=== PATIENT | male | born 1950 | race Two or more races ===

== ENCOUNTER 2018-07-23 07:33 | Observation (INO) | payer MEDICARE, BC ==
--- NOTE | 2018-07-16 22:35 | HP ---
CC: Atilio Hoyt MD * ADMITTING HISTORY AND PHYSICAL: DATE OF ADMISSION: 07/23/18 ADMITTING DIAGNOSES: 1. Benign prostatic hypertrophy. 2. Partial urinary retention. PLANNED PROCEDURE: Transurethral resection of prostate. SURGEON: Carlos Pemberton MD HISTORY OF PRESENT ILLNESS: Bryson Swanson is a 68-year-old gentleman with longstanding history of symptoms related to prostate enlargement. He has been on maximal medical therapy in the form of Flomax 0.4 mg twice a day as well as Proscar 5 mg a day. In spite of that, he has significantly increased postvoid residual of almost 500 cc and bothersome voiding symptoms and is now being brought in for transurethral resection of prostate. He had a transrectal ultrasound and biopsies done in 2011, which had revealed benign prostatic tissue. His PSA had risen to 20 in October 2017 and then declined to 8.2 and I have not repeated the PSA because of his chronically increased postvoid residual and recent evaluation including urodynamics, all of which can prominently increase his PSA. I recommended that we wait and recheck a PSA 3 months after transurethral resection of prostate and also offered to postpone the surgery for 3 to 4 months to recheck a PSA, but because of the bothersome voiding symptoms, he would like to have the surgery done and will have the PSA be checked afterwards. PAST MEDICAL HISTORY: Otherwise unremarkable. Specifically, there is no history of diabetes mellitus or any other major systemic illness. PAST SURGICAL HISTORY: Significant for appendectomy. MEDICATIONS ON ADMISSION: 1. Flomax 0.4 mg twice a day. 2. Proscar 5 mg a day. ALLERGIES: No known drug allergies. SOCIAL HISTORY: Smoking history: He is a former smoker, who quit about 5 to 7 years ago. There is a [id number] smoking history. PHYSICAL EXAMINATION GENERAL: Reveals a pleasant healthy appearing, middle-aged gentleman. VITAL SIGNS: Blood pressure is 110/70, pulse 82 per minute and regular, oxygen saturation 98% on room air. LUNGS: Clear bilaterally. CARDIOVASCULAR: Regular rate and rhythm. S1, S2. ABDOMEN: Soft without masses. IMPRESSION: A 68-year-old gentleman with longstanding history of voiding dysfunction secondary to prostate enlargement. Planned procedure is transurethral resection of prostate. I have discussed the procedure in detail including possible risks of bleeding, infection, persistent voiding, erectile dysfunction, and permanent retrograde ejaculation. PLAN: Transurethral resection of prostate. [id number]/[facility] #: [id number] MTDD
[~2018-07-23 07:33] MED LIST: Buffered Lidocaine 0.9% SYRIN* 5 ML/SYR SYRINGE INTRADERM ONE; Famotidine IV* 10 MG/ML 2 ML (20 mg) IV ONE; Gentamicin ADULT (*) 160 MG in NS 0.9% 100 ML* 100 ML IVPB ONE
[2018-07-23] MEDS ORDERED: cefTRIAXone(*) 2 GM ADDV.VIAL IVPB ONE (07:38)
[2018-07-23] MEDS ORDERED: Famotidine IV* 10 MG/ML 2 ML (20 mg) ONE (07:38)
[2018-07-23] MEDS ORDERED: fentaNYL* 50 MCG/ML 2 ML VIAL (100 MCG VIAL) ONE (07:53)
[2018-07-23] MEDS ORDERED: Midazolam* 1 MG/ML 5 ML VIAL (5 MG) ONE (07:53)
[2018-07-23] MEDS ORDERED: KETAMINE HCL* 50 MG/ML 10 ML VIAL ONE (09:21)
[2018-07-23] MEDS ORDERED: Propofol* 10 MG/ML 20 ML BTL IV PUSH ONE (09:29)
[2018-07-23] MEDS ORDERED: Lidocaine 2% PF * 5 ML VIAL ONE (09:29)
[2018-07-23] MEDS ORDERED: Dexamethasone IV* 4 MG/ML 1 ML (4 MG) ONE (09:29)
[2018-07-23] MEDS ORDERED: Bupivacaine-MPF SPINAL* 7.5 MG/ML - 2ML AMP ONE (09:29)
[2018-07-23] MEDS ORDERED: Ketorolac INJ* 30 MG/ML 1 ML VIAL ONE (09:29)
[2018-07-23] MEDS ORDERED: Ondansetron INJ* 2 MG/ML VIAL ONE (09:29)
[2018-07-23] MEDS ORDERED: Furosemide IV* 10 MG/ML 2 ML VIAL (20 MG) ONE ×2 (09:49→18:18)
[2018-07-23] MEDS ORDERED: hydrALAZINE IV* 20 MG/ML VIAL ONE (10:42)
[2018-07-23] MEDS ORDERED: Acetaminophen TAB* 325 MG PO PRN (13:03)
[2018-07-23] MEDS ORDERED: oxyCODONE/Acetamin 5/325 MG* TAB PO PRN (13:03)
[2018-07-23] MEDS ORDERED: Docusate CAP* 100 MG PO PRN (13:04)
[2018-07-23] MEDS ORDERED: Pneumococcal *Vac Polyvalent 0.5 ML VIAL IM ONE (14:00)
[2018-07-23] MEDS ORDERED: Morphine VIAL* 4 MG/ML VIAL (1 ml vial) IV ONE (16:49)
[2018-07-23] MEDS ORDERED: Furosemide IV* 10 MG/ML 2 ML VIAL (20 MG) IV ONE (18:09)
[2018-07-23] MEDS: NS 0.9% 1000 ML* 1,000 ML IV ONE ×2 (19:09→20:38)
[2018-07-23 19:32] LABS: ABS Basophils 0.1 10^3/ul (0-0.2); ABS Eosinophils 0 10^3/ul (0-0.6); ABS Lymphocytes 0.6 10^3/ul (1.0-4.8); ABS Monocytes 0.5 10^3/ul (0-0.8); ABS Neutrophils 10.9 10^3/ul (1.5-7.7); ABS Nucleated RBC 0 10^3/ul; Eosinophil % 0 % (0-6); Hematocrit 40 % (42-52); Hemoglobin 13.4 g/dl (14.0-18.0); Lymphocyte % 4.7 % (25-47); Mean Corpuscular HGB Conc 34 g/dl (31-36); Mean Corpuscular Hemoglobin 31 pg (27-31); Mean Corpuscular Volume 92 fL (80-94); Mean Platelet Volume 10.3 um3 (7.4-10.4); Nucleated Red Blood Cells % 0.1; Platelet Count 188 10^3/ul (150-450); Red Blood Count 4.34 10^6/ul (4.00-5.40); Red Cell Distribution Width 13 % (10.5-15)
[2018-07-23 19:46] LABS: EGFR Non-African American 77.2 (>60)
[2018-07-23] MEDS ORDERED: Magnesium Sulfate 2 GM IV* 2 GM/50 ML BAG IVPB ONE (19:49)
[2018-07-23] MEDS ORDERED: NS 0.9% 1000 ML* 1,000 ML IV ONE (20:33)
[2018-07-23] MEDS ORDERED: LORazepam INJ* 2 MG/ML 1 ML VIAL IV PUSH ONE (21:26)
--- NOTE | 2018-07-23 21:54 | CONS ---
CC: Dr. Hyot; Dr. Pemberton * CONSULTATION REPORT: DATE OF CONSULT: 07/23/18 PRIMARY CARE PROVIDER: Dr. Hoyt. ATTENDING PHYSICIAN WHILE IN THE HOSPITAL: Chyna Jose MD (report being dictated by Karena Fraga NP). REASON FOR MEDICAL CONSULTATION: Tachycardia. HISTORY OF PRESENT ILLNESS: I refer you to Dr. Pemberton's H and P for further details. In short, Mr. Swanson is a 68-year-old male patient who has been having issues with BPH for some time. He sought care with Dr. Pemberton. Dr. Pemberton recommended a TURP, which he underwent today. It was noted intraoperatively that the patient was having issues with hypertension. He was given Lasix intraoperatively to help with the blood pressure according to Dr. Pemberton. He was then noted postoperatively at around 1800 to be tachycardic in the 120s. Because of this, we were asked to evaluate in consult. The patient says he has no medical history. He denies having any history of heart attack, strokes, cancers. He denies having any history of diabetes, hypertension, CAD. There was concern though because of the tachycardia. He is evaluated in the surgical stay unit. He denies any chest pain or shortness of breath. He says he is feeling well. He denies having any abdominal pain. He denies having any nausea or vomiting. He denies having any lightheadedness or dizziness and says he does not feel like he is going to faint or pass out. Because of tachycardia , we were asked to evaluate in consult. PAST MEDICAL HISTORY: Significant for BPH. PAST SURGICAL HISTORY: He has had: 1. Appendectomy. 2. TURP. HOME MEDICATIONS: Include: 1. Proscar 1 tablet daily. 2. Flomax 1 tablet daily. 3. Advil 3 tablets p.o. daily as needed. ALLERGIES TO MEDICATIONS: Include no known drug allergies. FAMILY HISTORY: Mother's history is unknown. Father of old age. SOCIAL HISTORY: He is a former smoker. He does drink 1 to 2 glasses of wine with dinner. Surrogate decision maker is his . REVIEW OF SYSTEMS: There is no documented fever. He denies having any significant weight change. There was no double vision. He denies having any ear discharge. He denies having any rhinorrhea. There was no sore throat. No thyroid enlargement. Denied having any chest pain. There is no orthopnea, no nocturnal dyspnea. There is no abdominal pain, no nausea, no vomiting. No dysuria, no frequency. No seizure, no loss of consciousness. No pruritus and no skin ulcerations. Review of 14 systems was completed, all others negative. PHYSICAL EXAM: Vital Signs: When he came in at 7:50 in the morning, his blood pressure was 151/97, blood pressure now is 155/86; pulse 120; respirations 18; O2 sat 99%; temperature 97.8. General: At this time, Mr. Swanson is a 68-year -old male patient. He is sitting in the hospital bed. He does not appear to be in any acute distress. He appears to be well nourished and well developed. HEENT: Head: Atraumatic and normocephalic. Eyes: EOMs intact. Sclerae are anicteric and not pale. Throat: Oral mucosa appears to be moist. No oropharyngeal erythema. Neck was supple. Heart: Sounds S1, S2. He is tachycardic. No murmurs, rubs, or gallops. Lungs were clear to auscultation bilaterally. No wheezes, rales, or rhonchi. Abdomen was soft, flat, nontender. Bowel sounds were present. Extremities: Pulses were 2+ throughout. He is moving all 4 extremities with 5/5 strength. Neurologically, he is awake , alert, and oriented x3. No gross focal deficits. Skin is intact. DIAGNOSTIC STUDIES/LAB DATA: Labs are pending at this point, but he did have an EKG which shows sinus tachycardia, rate of 120. T-waves were flat in lead 2 , negative in lead 3, flat in aVF. No previous EKG for comparison was noted. Old medical records were reviewed. ASSESSMENT AND PLAN: Mr. Swanson is a 68-year-old male patient coming in to services today of Dr. Pemberton for a TURP. We were asked to evaluate in consult due to tachycardia postop. Our recommendations at this point are: 1. Tachycardia. At this point, it could be secondary to the fact that he did receive 15 mg of IV Lasix preop. He may be just behind in fluids; however, he did have a TURP. I do worry about possible bleeding, so I am checking a CBC, mag, BMP, TSH. He is not complaining of any chest pain or shortness of breath. I do not believe this is a pulmonary embolism. I am going to place him on telemetry and monitor him. He just had the TURP earlier today, so it is a little soon for this. He is not having any calf or leg pain. I think we will continue to monitor him, give him a liter of fluids, see if he responds and check his CBC and his electrolytes currently. 2. Benign prostatic hypertrophy. I will defer the management to Dr. Pemberton. 3. DVT prophylaxis per the primary team. 4. Fluids, electrolytes, and nutrition: I would recommend a regular diet. 5. Code status: Full code. TIME SPENT: Time spent on consult was 60 minutes, greater than half the time was spent [id number] with the patient obtaining my history and physical, other half time was spent going over the plan of care with the patient and implementing plan of care. I discussed the plan of care with my attending, Dr. Jose; she is in agreement. KARENA FRAGA NP [id number]/[facility] #: [id number] LAISHA
[2018-07-23] MEDS ORDERED: LORazepam TAB(*) 1 MG PO SCH (23:45)
[2018-07-23] MEDS ORDERED: Metoprolol Tartrate IV* 1 MG/ML 5 ML VIAL IV PRN (23:57)
--- NOTE | 2018-07-23 23:59 | PN ---
Progress Note - Progress Note Date of Service: 07/23/18 Note: Paged for persistent sinus tachycardia. Not scoring on WAM with the exception of his tachycardia. Will transfer to tele and ordered prn lopressor. Did not respond to IVFs or ativan. Unclear the etiology behind the tachycardia. Will order echo in AM.
[2018-07-24] MEDS ORDERED: Metoprolol Tartrate IV* 1 MG/ML 5 ML VIAL ONE (00:03)
--- NOTE | 2018-07-24 01:05 | OP ---
CC: Atilio Hoyt MD * DATE OF OPERATION: 07/23/18 - ROOM #431 DATE OF : 52 SURGEON: Carlos Pemberton MD ANESTHESIOLOGIST: Dr. Peña. ANESTHESIA: Spinal. PRE-OP DIAGNOSIS: Benign prostatic hypertrophy. POST-OP DIAGNOSIS: Benign prostatic hypertrophy. OPERATIVE PROCEDURE: 1. Transurethral resection of prostate. 2. Transurethral incision of bladder neck. COMPLICATIONS: None. ESTIMATED BLOOD LOSS: Approximately 100 cc. SPECIMENS: Prostate chips. CATHETER: 24-Omani Stafford. INDICATIONS: Bryson Swanson is a 68-year-old gentleman with longstanding history of symptoms related to prostate enlargement who has failed medical therapy and is now being brought in for transurethral resection of the prostate. DESCRIPTION OF PROCEDURE: After induction of spinal anesthesia, the patient was placed in dorsal lithotomy position. Sequential compression devices were in place and functioning. Initial evaluation revealed a moderately enlarged obstructing prostate, a trabeculated bladder with multiple small bladder diverticula noted. Transurethral resection of prostate was carried out from the bladder neck down to the veru. The floor of the prostate was first resected, followed by the lateral lobe tissue and then the anterior tissue. At no point was the resection carried distal to the veru in an effort to avoid any potential injury to the sphincter. The resected tissue was removed from the bladder using the Ellik evacuator. Next, using right angle knife electrode, transurethral incision of the bladder neck was carried out at the 5, 7 and 12 o'clock positions in an effort to minimize any chances of postoperative bladder neck contracture. At the end of the procedure, hemostasis appeared satisfactory. A 24-Omani Stafford was introduced without difficulty. The patient tolerated the procedure satisfactorily and was transferred back to the recovery area in stable condition. [id number]/[facility] #: [id number] [facility]
--- NOTE | 2018-07-24 07:24 | RAD ---
Indication: Tachycardia. Comparison: June 06, [address] Technique: Upright AP 2050 hours Report: Minimal LEFT basilar subsegmental atelectasis. Negative for pleural effusion or pneumothorax. Negative for cardiomegaly. Unremarkable central pulmonary vasculature. Moderately tortuous thoracic aorta. IMPRESSION: #. Minimal LEFT basilar subsegmental atelectasis. R1
[2018-07-24] MEDS ORDERED: Magnesium Sulfate IV* 3 GM in NS 0.9% 100 ML* 100 ML IVPB ONE (08:00)
[2018-07-24] MEDS: Thiamine TAB* 100 MG TAB PO SCH (08:31)
[2018-07-24] MEDS: Folic Acid TAB* 1 MG PO SCH (08:31)
[2018-07-24] MEDS: Multivitamins/Minerals TAB PO SCH (08:31)
--- NOTE | 2018-07-24 17:32 | ECHO ---
Patient: JONE SAHA [facility] Rec#: [id number] : 1950 Date: 07/24/2018 Age: 68y Height: 175 cm / 68.9 in Weight: 72.6 kg / 160.0 lbs Sex: M BSA: 1.88 Room#: 431 Admit Date#: 07/23/2018 Type: Inpatient Referring: Chyna Jose Reading: Gregory Christian DO Reception Interviewer: Loli Kelly RN RDCS CC: Atilio Hoyt MD Transthoracic Echocardiogram Indication: Abnormal EKG, tachycardia BP: 132/47 HR: 86 Rhythm: NSR Findings History: Former smoker, BPH Technical Comments: The study quality is fair. Left Ventricle: The left ventricular chamber size is normal. Mild to moderate concentric left ventricular hypertrophy is observed. Global left ventricular wall motion and contractility are within normal limits. There is normal left ventricular systolic function. The estimated ejection fraction is 60-65%. There is no consistent Doppler evidence of clinically significant diastolic dysfunction. Left Atrium: The left atrial chamber size is normal. Right Ventricle: The right ventricular chamber size and systolic function are within normal limits. Right Atrium: The right atrium is mildly dilated. Aortic Valve: The aortic valve appears bicuspid., probable with fusion of RCC/LCC The aortic valve leaflets are mildly thickened. There is moderate aortic regurgitation. There is borderline aortic stenosis present. Mitral Valve: The mitral valve leaflets are mildly thickened. There is mild mitral regurgitation. There is no evidence of mitral stenosis. Tricuspid Valve: The tricuspid valve leaflets are normal. There is trace to mild tricuspid regurgitation. Unable to estimate the right ventricular systolic pressure. There is no tricuspid stenosis. Pulmonic Valve: The pulmonic valve appears normal. There is mild pulmonic regurgitation. There is no pulmonic stenosis. Pericardium: There is no significant pericardial effusion. Aorta: There is mild dilatation of the aortic root. Pulmonary Artery: The main pulmonary artery appears normal. Venous: The inferior vena cava is dilated. There is a greater than 50% respiratory change in the inferior vena cava dimension. Conclusions The left ventricular chamber size is normal. Mild to moderate concentric left ventricular hypertrophy is observed. Global left ventricular wall motion and contractility are within normal limits. There is normal left ventricular systolic function. The estimated ejection fraction is 60-65%. The left atrial chamber size is normal. The right ventricular chamber size and systolic function are within normal limits. The aortic valve appears bicuspid There is moderate aortic regurgitation. There is borderline aortic stenosis present. There is mild dilatation of the aortic root at 3.8 cm The visualized portion of the ascending aorta is dilated at 4.5 cm. In the setting of a bicuspid aortic valve this is severe dilation. The more distal portions of the ascending aorta, aortic arch and descending aorta are not well visualized. None prior for comparison at time of interpretation Measurements Name Value Normal Range RVIDd (AP) 2D 3.2 cm (0.9 - 2.6) RVDdMajor (2D) 4.2 cm (2.2 - 4.4) RAd ISD 4CH 5.3 cm (3.4 - 4.9) RA (A4C)W 4.1 cm (2.9 - 4.6) IVSd (2D) 1.3 cm (0.6 - 1) LVPWd (2D) 1.3 cm (0.6 - 1) LVIDd (2D) 4.8 cm (3.6 - 5.4) LVIDs (2D) 3.4 cm - LV FS (2D) 29 % (25 - 45) Aortic Annulus 2.2 cm (1.4 - 2.6) Ao root diameter (2D) 3.8 cm (2.1 - 3.5) Ascending Ao 4.5 cm (2.1 - 3.4) Aortic arch 3.3 cm (1.8 - 3.4) LA dimension (AP) 2D 3.2 cm (2.3 - 3.8) LAd ISD 4CH 4.4 cm (2.9 - 5.3) LA ISD 4CH W 3.8 cm (2.5 - 4.5) Name Value Normal Range LA ESV BP (A/L) index 19.8 ml/m2 - Name Value Normal Range MV E-wave Vmax 0.63 m/sec - MV deceleration time 239 msec - MV A-wave Vmax 0.87 m/sec - LV septal e' Vmax 0.05 m/sec - LV lateral e' Vmax 0.05 m/sec - LV E:e' septal ratio 12.6 ratio - LV E:e' lateral ratio 12.6 ratio - Name Value Normal Range AV Vmax 2.2 m/sec - AV VTI 44.4 cm - AV peak gradient 19 mmHg - AV mean gradient 11 mmHg - LVOT diameter 2 cm - LVOT Vmax 1.4 m/sec - LVOT VTI 25.7 cm - LVOT peak gradient 8 mmHg - LVOT mean gradient 4 mmHg - DOI (VTI) 0.58 ratio - DOI (Vmax) 0.64 ratio - FLROI (continuity Vmax) 2 cm2 - FLORI (continuity VTI) 1.8 cm2 - TIMOTEO Vmax 0.38 m/sec - Name Value Normal Range IVC diameter 2.3 cm - Name Value Normal Range PV Vmax 0.91 m/sec -
[2018-07-24] MEDS ORDERED: Metoprolol Tartrate IV* 1 MG/ML 5 ML VIAL IV PRN (18:12)
--- NOTE | 2018-07-24 18:23 | PN ---
Subjective Date of Service: 07/24/18 Interval History: Patient has offered no complaints today. Patient is unaware when his heart rate is going up. Patient denies CP, SOB, N/V, abdominal pain, dizziness, F/C, or other pain. Discussed with patient his diagnosis of bicuspid aortic valve and aortic dilation and he elected to stay until the morning to discuss with a sand carrier and set up monitoring. Family History: Unchanged from Admission Social History: Unchanged from Admission Past Medical History: Unchanged from Admission Objective Active Medications: Acetaminophen (Tylenol Tab*) 650 mg PO Q6H PRN PRN Reason: TEMP>100.5 Docusate Sodium (Colace Cap*) 100 mg PO TID PRN PRN Reason: . Folic Acid (Folvite Tab*) 1 mg PO DAILY [facility] Last Admin: 07/24/18 08:31 Dose: 1 mg Metoprolol Tartrate (Lopressor Iv*) 5 mg IV Q6H PRN PRN Reason: BLOOD PRESSURE Metoprolol Tartrate (Lopressor Tab*) 25 mg PO BID [facility] Multivitamins/Minerals (Theragran/Minerals Tab*) 1 tab PO DAILY [facility] Last Admin: 07/24/18 08:31 Dose: 1 tab Oxycodone/Acetaminophen (Percocet 5/325 Tab*) 1 tab PO Q4H PRN PRN Reason: . Thiamine HCl (Vitamin B-1 Tab*) 100 mg PO DAILY [facility] Last Admin: 07/24/18 08:31 Dose: 100 mg Vital Signs - 8 hr 07/24/18 07/24/18 07/24/18 10:57 11:30 12:58 Temperature 98.0 F 97.9 F 98.6 F Pulse Rate 94 88 107 Respiratory 18 20 16 Rate Blood Pressure 147/74 144/80 139/69 (mmHg) O2 Sat by Pulse 97 98 96 Oximetry 07/24/18 07/24/18 14:00 15:14 Temperature 98.2 F Pulse Rate 85 Respiratory 20 Rate Blood Pressure 151/77 157/56 (mmHg) O2 Sat by Pulse 97 Oximetry Oxygen Devices in Use Now: None Appearance: Patient is a 68yo male who appears younger than stated age and is sitting in the bed in [facility]. Eyes: No Scleral Icterus, PERRLA Ears/Nose/Mouth/Throat: NL Teeth, Lips, Gums, Clear Oropharnyx, Mucous Membranes Moist Neck: NL Appearance and Movements; NL JVP, Trachea Midline Respiratory: Symmetrical Chest Expansion and Respiratory Effort, Clear to Auscultation Cardiovascular: NL Sounds; No Murmurs; No JVD, RRR, No Edema Abdominal: NL Sounds; No Tenderness; No Distention, No Hepatosplenomegaly Lymphatic: No Cervical Adenopathy Extremities: No Edema, No Clubbing, Cyanosis Skin: No Rash or Ulcers, No Nodules or Sclerosis Neurological: Alert and Oriented x 3, NL Sensation, NL Muscle Strength and Tone , - - CN II-XII intact Lines/Tubes/Other Access: Clean, Dry and Intact Stafford Result Diagrams: 07/23/18 19:22 07/23/18 19:22 Assess/Plan/Problems-Billing Assessment: Patient is a 68yo male with a PMH only for BPH, who is admitted for TURP and developed sinus tachycardia perioperatively which is improving. Patient had an incidentally found Bicuspid aortic valve on Echocardiogram and severe Ascending Aorta dilation. - Patient Problems (1) Aortic aneurysm Current Visit: Yes Status: Acute Code(s): I71.9 - AORTIC ANEURYSM OF UNSPECIFIED SITE, WITHOUT RUPTURE SNOMED Code(s): 18822188 Comment: - Incidentally found severe aortic aneurysm on Echo - With associated bicuspid aortic valve - Cardiology consult pending - Metoprolol started and PRN IV - Will need ongoing routine monitoring. (2) Bicuspid aortic valve Current Visit: Yes Status: Acute Code(s): Q23.1 - CONGENITAL INSUFFICIENCY OF AORTIC VALVE SNOMED Code(s): 21806407 Comment: - See above, with associated mild aortic regurgitation and trace aortic stenosis (3) S/P TURP Current Visit: Yes Status: Acute Code(s): Z90.79 - ACQUIRED ABSENCE OF OTHER GENITAL ORGAN(S) SNOMED Code(s): 297049571 Comment: - Stable, persistent hematuria - Hold Flomax and Finasteride - Continue Stafford (4) Sinus tachycardia Current Visit: Yes Status: Acute Code(s): R00.0 - TACHYCARDIA, UNSPECIFIED SNOMED Code(s): 45421471 Comment: - Improving, Unknown cause (5) DVT prophylaxis Current Visit: Yes Status: Acute Code(s): TYL0880 - SNOMED Code(s): 327833613 Comment: - SCDs and Ambulation (6) Full code status Current Visit: Yes Status: Acute Code(s): Z78.9 - OTHER SPECIFIED HEALTH STATUS SNOMED Code(s): 702313906 Status and Disposition: Inpatient for cardiology consult.
[2018-07-24] MEDS: Metoprolol Tartrate TAB* 25 MG PO SCH (20:23)
[2018-07-25 06:07] LABS: ABS Basophils 0 10^3/ul (0-0.2); ABS Eosinophils 0.2 10^3/ul (0-0.6); ABS Lymphocytes 1.7 10^3/ul (1.0-4.8); ABS Neutrophils 6.3 10^3/ul (1.5-7.7); ABS Nucleated RBC 0 10^3/ul; Eosinophil % 1.8 % (0-6); Hematocrit 38 % (42-52); Hemoglobin 12.9 g/dl (14.0-18.0); Lymphocyte % 18.2 % (25-47); Mean Corpuscular HGB Conc 34 g/dl (31-36); Mean Corpuscular Hemoglobin 31 pg (27-31); Mean Corpuscular Volume 92 fL (80-94); Mean Platelet Volume 10.2 um3 (7.4-10.4); Nucleated Red Blood Cells % 0.1; Platelet Count 172 10^3/ul (150-450); Red Blood Count 4.13 10^6/ul (4.00-5.40); Red Cell Distribution Width 13 % (10.5-15); White Blood Count 9.1 10^3/ul (3.5-10.8)
[2018-07-25 06:24] LABS: EGFR Non-African American 74.5 (>60)
[2018-07-25] MEDS: Thiamine TAB* 100 MG TAB PO SCH (09:04)
[2018-07-25] MEDS: Multivitamins/Minerals TAB PO SCH (09:04)
[2018-07-25] MEDS: Folic Acid TAB* 1 MG PO SCH (09:04)
[2018-07-25] MEDS: Metoprolol Tartrate TAB* 25 MG PO SCH (09:06)
[2018-07-25] MEDS ORDERED: Losartan TAB* 25 MG PO SCH (11:00)
--- NOTE | 2018-07-25 11:06 | CONSULT ---
Subjective Date of Service: 07/25/18 Interval History: Date of admission: 07/23/2018 Date of consult: 07/25/2018 PMD: Dr. Hoyt Service: Urologist CC: Urologic scheduled procedure Reason for consult: Incidentally discovered bicuspid aortic valve with thoracic aortic aneurysm. HPI Mr. Swanson is a 68-year-old man admitted for an elective TURP and has issues with sinus tachycardia and hypertension willian-operatively. An echocardiogram was performed showing an incidentally discovered bicuspid AoV with moderate AI and 4.5 cm TAA. He is asymptomatic from this and denies any chest pain, back pain or dyspnea. He has never been diagnosed with hypertension previously. He does not lift weights. His family history is as below. He had already done a lot of independent investigation into this condition by the time we met. His mother in law sees Dr. Noyola, has had multiple procedures with Dr. Pinto at [facility] and if surgery would be indicated, he would want it there. Social history: and is present. Worked in [employer] business all of life. 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 Prior tobaco use intermittenly ih past quit for good 2010, 1-2 glass of wine in evening, from [place] PAST MEDICAL HISTORY: BPH Cardiac as above PAST SURGICAL HISTORY: He has had: 1. Appendectomy. 2. TURP. HOME MEDICATIONS: Include: 1. Proscar 1 tablet daily. 2. Flomax 1 tablet daily. 3. Advil 3 tablets p.o. daily as needed. ALLERGIES TO MEDICATIONS: Include no known drug allergies. FAMILY HISTORY: Brother had brain aneurysm 1982 of this age 42 Mother age 78 or 79 in [place], had heart problems undefined, never had surgery Father age 95 age related issues 3 sisters in [place] and 1 in [place] no cardiac issues 3 children no cardiac issues All grandparents late 70's-early 80-'s uncertain about cardiac issues No known valve or aortic issues diagnosed in family. Medications Active Medications: Acetaminophen (Tylenol Tab*) 650 mg PO Q6H PRN PRN Reason: TEMP>100.5 Docusate Sodium (Colace Cap*) 100 mg PO TID PRN PRN Reason: . Folic Acid (Folvite Tab*) 1 mg PO DAILY KRIS Last Admin: 07/25/18 09:04 Dose: 1 mg Losartan Potassium (Cozaar Tab*) 25 mg PO DAILY [facility] Metoprolol Tartrate (Lopressor Tab*) 25 mg PO BID [facility] Last Admin: 07/25/18 09:06 Dose: 25 mg Multivitamins/Minerals (Theragran/Minerals Tab*) 1 tab PO DAILY [facility] Last Admin: 07/25/18 09:04 Dose: 1 tab Oxycodone/Acetaminophen (Percocet 5/325 Tab*) 1 tab PO Q4H PRN PRN Reason: . Thiamine HCl (Vitamin B-1 Tab*) 100 mg PO DAILY [facility] Last Admin: 07/25/18 09:04 Dose: 100 mg Home Medications: Finasteride 5 mg PO QAM 07/16/18 [History Confirmed 07/23/18] Acetaminophen TAB* [Tylenol TAB*] 650 mg PO Q6H PRN tab 07/24/18 [Rx] Review of Systems - Measurements Intake and Output: Intake and Output Last 24 Hours 07/23/18 07/24/18 07/25/18 07/26/18 06:59 06:59 06:59 06:59 Intake Total 7288 2540 Output Total 5065 3110 Balance 2223 -570 Weight 160 lb Intake: IV Fluids 6478 400 LR 3585 Magnesium 50 NS (0.9%) 1989 IVPB 100 Oral 810 2040 Output: Stafford 4725 3110 Irrigation 340 Other: # Bowel Movements 0 - Review of Systems Constitutional Symptoms: Negative: Weight Gain, Weight Loss Dermatology: Negative: Rash, Skin Lesions HEENT: Negative: Change in Hearing, Vertigo Eyes: Negative: Change in Vision, Double Vision Thyroid: Negative: Cold Intolerance, Heat Intolerance, Palpitations, Primary Hypothyroidism, Primary Hyperthyroidism, Weight Loss, Weight Gain Pulmonary: Negative: Sputum, Hemoptysis, Wheezing, Respiratory Distress, Shortness of Breath, COPD, Asthma, Exercise Intolerance, Home Oxygen Cardiology: Negative: Chest Pain, Shortness of Breath, Palpitations, Swelling of Ankles, Peripheral Vascular Dis, Edema, Faintness, Syncope, Claudication, Paroxysmal Nocturnal Dyspnea, Orthopnea Gastroenterology: Negative: Abdominal Pain, Nausea, Vomiting, Anorexia Genital - Urinary: Positive: Polyuria Negative: Hematuria Musculoskeletal: Negative: Joint Pain, Joint Stiffness, Arthritis, Osteoporosis, Low Back Pain Endocrinology: Negative: Obesity, Diabetes, Polydipsia, Polyuria Hematologic/Lymphatic: Negative: Use of Anticoagulant, Use of Antiplatelet Drugs Neurology: Negative: Headaches, Migraines, Change in Vision, Diplopia, Dizziness, Change in Balancing, Change in Coordination, Change in Memory, Hx of Stroke\TIA , Hx Seizures Psychiatry: Negative: Unusual Anxiety, Suicidal Ideation Allergic/Immunologic: Negative: Hx Anaphylaxis, Hx Angioedema, Hx HIV, Immunocompromise, Swollen Glands Lymph Nodes Review of Systems Statement: All other review of systems negative, unless stated above. Objective Vital Signs: Temp Pulse Resp BP Pulse Ox 99.8 F 60 20 142/52 97 07/25/18 07:20 07/25/18 07:20 07/25/18 07:20 07/25/18 07:20 07/25/18 07:20 Oxygen Devices in Use Now: None Appearance: nad, pleasant Ears/Nose/Mouth/Throat: Clear Oropharnyx, Mucous Membranes Moist Neck: NL Appearance and Movements; NL JVP, Trachea Midline Respiratory: Symmetrical Chest Expansion and Respiratory Effort, Clear to Auscultation Cardiovascular: RRR, No Edema, - - 1-2/6 diastolic murmur best heard at direct apex under left breast Extremities: No Edema, No Clubbing, Cyanosis Skin: No Rash or Ulcers Neurological: Alert and Oriented x 3 Laboratory Results: 07/25/18 05:22 07/25/18 05:22 TSH 0.75 mcIU/mL (0.34-5.60) 07/23/18 19:22 07/23/18 19:22 Troponin I 0.01 Diagnostic Imaging: Echo 07/23/2018: Normal LV size, mild-moderate LVH, LvEF 60-65%, normal LA size, normal RV size and function. Bicuspid AoV with RCC/LCC mildly thickened no significant calcium , moderate AI, borderline (2.2 m/s, mean gradient 11 mmHg, calculated FLORI 2 cm^2 by Vmax), 3.8 cm aortic root, 4.5 cm ascending aorta of visualized portions cxr 07/24/2018: moderately tortuous thoracic aorta EKG Data: EKG 07/24/2018 shows NSR, LVH with repolarization changes Assessment/Plan 68 year old man with incidentally discovered bicuspid AoV with moderate AI and borderline at most (appears to be a repairable valve) associated with 4.5 cm ascending aortic aneurysm by echo. No family history of aortic disease although first degree male relative that of cerebral aneurysm is very suspicious for similar inherited condition. - Continue metoprolol 25 mg po bid - Add losartan 25 mg po daily (ordered). Needs BMP in 1-2 weeks - Will gradually uptitrate medications as outpatient to goal BP ~ 120/80 - Will arrange for a CT of the aorta at [facility] as an outpatient to further define the dimensions and extent of his aortic aneurysm and arrange follow up afterwards - Patient can be discharged from a cardiac standpoint Thank you for allowing me to participate in the cardiovascular care of this patient. Please do not hesitate to contact me with questions or concerns.
[2018-07-25 15:36] VITALS: BP 132/65
--- NOTE | 2018-07-26 07:59 | DS ---
CC: Dr. Pemberton; Dr. Christian; Dr. Uribe * DISCHARGE SUMMARY: DATE OF ADMISSION: 07/23/18 DATE OF DISCHARGE: 07/25/18 MY ATTENDING FOR TODAY: Dr. Styles.* (DICTATED BY LUCILLE DESHPANDE NP) ATTENDING FOR THIS ADMISSION: Dr. Pemberton. HOSPITAL COURSE: This is a very pleasant 68-year-old male patient who was admitted by Urology for an elective TURP. The patient underwent his procedure and then had some sinus tachycardia and hypertension in the postoperative period. An echocardiogram was performed shortly thereafter, which showed an incidental finding of a bicuspid aortic valve and a 4.5 cm aortic aneurysm. The patient states he was asymptomatic. He did not have any chest pain. No tearing sensation in his back, no shortness of breath or dyspnea on exertion. The patient has essentially been asymptomatic. However, it was felt that the patient should be seen by cardiology prior to discharge given these new findings. He was seen by Dr. Gregory Christian on 07/25/18 who evaluated his echocardiogram. Recommendations from Dr. Christian were to continue metoprolol 2 times a day, add losartan, followup as an outpatient to titrate his medications and Dr. Christian's office will arrange for a CT of the aorta at [facility] as an outpatient to further investigate these issues with his aortic valve and the aneurysm. REVIEW OF SYSTEMS: On the day of discharge, the patient is not complaining of any fever, fatigue, or chills. No headache, no dizziness, no shortness of breath, no chest pain, no nausea, no vomiting, no abdominal pains. Urinary catheter with no issues. Musculoskeletal: No arthralgias or myalgias and no further constitutional complaints. PHYSICAL EXAM: The patient is alert, in no acute distress. Vital Signs: Blood pressure 132/65, heart rate 96, respiratory rate 20, O2 saturation 97% on room air with a temperature of 98.8. HEENT: The patient is atraumatic and normocephalic. PERRLA with nonicteric sclerae. Neck is supple and nontender. No JVD noted. No carotid bruits auscultated. Cardiovascular: S1 and S2 are present. No murmurs, gallops, or rubs noted. He has regular sinus rhythm on telemetry with no ectopy. Lungs are clear bilaterally to auscultation with no wheezing, rhonchi, or rales. Abdomen is soft, nontender, and nondistended. Positive bowel sounds in all 4 quadrants. : He has a Stafford catheter in place draining tea-colored urine. No clots noted in his bag. Musculoskeletal: There is no clubbing, no cyanosis, and no edema. He has +2 distal pulses palpable. Steady gait. Full range of motion. Gross motor and sensation are intact. Neurologic: Grossly intact with no focality. Psychiatric: He is cooperative and appropriate. LABORATORY DATA: WBC is 9.1, RBC is 4.13, hemoglobin 12.9, hematocrit 38, platelets 172. Sodium 143, potassium 3.8, chloride 108, CO2 of 28, BUN 15, creatinine 1.00, GFR 74.5, glucose 91, calcium 8.8, magnesium 2.2, TSH is 0.75, and troponin is negative at 0.01. DISCHARGE DIAGNOSES: 1. Benign prostatic hypertrophy, status post transurethral resection of the prostate. 2. Aortic aneurysm. 3. Bicuspid aortic valve. DISCHARGE MEDICATIONS: Include: 1. Proscar 1 tablet daily. 2. Flomax 1 tablet daily. 3. He was advised to stay away from [facility] given recent surgery. New Medications: 1. Metoprolol tartrate 25 mg b.i.d. 2. Losartan 25 mg daily. DISPOSITION: The patient will be discharged to home. FOLLOWUP: The patient was instructed to follow up with his primary care provider, Dr. Atilio Hoyt, also Dr. Thapa of cardiology service who will arrange additional testing at the [facility] and also Dr. Carlos Pemberton of Urology should follow up with him on Saturday to discuss when Stafford will be removed. The patient was discharged in stable condition. All questions were answered. The patient stated his understanding of his discharge, medications and followup. LUCILLE DESHPANDE NP [id number]/[facility] #: [id number] [facility]
== END 2018-07-25 17:00 | disposition home or self-care (01) ==
LOC: OR 07:33 → SSU 12:02 → MEDTELE 07-24 00:41
PROVIDERS: ADMIT Urology; ATTEND Hospitalist
PROC: 0VT08ZZ Resection of Prostate, Via Natural or Artificial Opening Endoscopic (ICD-10-PCS; principal; 2018-07-23 09:00)
DX: N40.1 Benign prostatic hyperplasia with lower urinary tract symptoms (principal); R33.8 Other retention of urine; I71.4 Abdominal aortic aneurysm, without rupture; Q23.1 Congenital insufficiency of aortic valve; R06.02 Shortness of breath; Z79.899 Other long term (current) drug therapy; I10 Essential (primary) hypertension; R00.0 Tachycardia, unspecified; Z23 Encounter for immunization; Z87.891 Personal history of nicotine dependence; I35.1 Nonrheumatic aortic (valve) insufficiency
CPT/HCPCS: 36415; 71045; 80048; 83735; 84443; 84484; 85025; 88305; 90471; 90472; 90686; 90732; 93005; 93306; 96365; 96366; 96375; A9270-GY; G0008; G0009; G0378; J0360; J0696; J1100; J1580; J1885; J1940; J2060; J2250; J2270; J2405; J2704; J3010; J3475; J3490

== ENCOUNTER 2019-02-21 10:35 | Emergency (ER) | payer MEDICARE, BC ==
[2019-02-21 11:05] VITALS: BP 153/68
--- NOTE | 2019-02-21 11:27 | UC ---
Headache HPI - HPI Summary HPI Summary: gradual onset dull headache behind bilateral eyes, occassionally radiates to bilateral ears, job L, also feels fatigued (working extra lately as well). "feels like sinus infection". denies sudden thunderclap headache, weakness or neuro deficits - History Of Current Complaint Chief Complaint: UCHeadacedric Stated Complaint: HEADACHE Time Seen by Provider: 02/21/19 11:05 Hx Obtained From: Patient Onset/Duration: Gradual Onset Onset Of Symptoms: Gradual Initially Headache Was: Mild Currently Pain Is: Moderate Pain Intensity: 8 Timing: Constant Character: Dull, Pressure Location of Headache: Occipital Aggravating Factor(s): Position Change Allevating Factor(s): Nothing Associated Signs And Symptoms: Positive: Sinus Pressure. Negative: Dizziness, Seizure, Nausea, Vomiting, Fever, Neck Pain, Neck Stiffness, Visual Changes - Allergies/Home Medications Allergies/Adverse Reactions: Allergies Allergy/AdvReac Type Severity Reaction Status Date / Time No Known Allergies Allergy Verified 02/21/19 11:05 Home Medications: Home Medications Aspirin 81 mg CHEW TAB* 81 mg PO DAILY 02/21/19 [History Confirmed 02/21/19] Atorvastatin* [Lipitor 40 MG*] 40 mg PO 1700 02/21/19 [History Confirmed ] Metoprolol Tartrate TAB* [Lopressor TAB*] 50 mg PO BID 02/21/19 [History Confirmed 02/21/19] Oxycodone HCl 5 mg PO Q6H PRN 02/21/19 [History Confirmed 02/21/19] Warfarin TAB(*) [Coumadin TAB(*)] 2.5 mg PO 1700 02/21/19 [History Confirmed 02/06] PMH/Surg Hx/FS Hx/Imm Hx Previously Healthy: Yes Endocrine History: Dyslipidemia Cardiovascular History: Cardiac Disease, Hypertension - Surgical History Surgical History: Yes Surgery Procedure, Year, and Place: appendectomy, age 11, aortic valve replacement, aortic aneurysm - Family History Known Family History: Positive: Hypertension, Other - cerebral aneurysm - brother - Social History Occupation: Employed Full-time Lives: With Family Alcohol Use: Daily Alcohol Amount: 1 glass wine Substance Use Type: None Smoking Status (MU): Former Smoker Amount Used/How Often: pack a day for 20 yrs When Did the Patient Quit Smoking/Using Tobacco: 2007 - Immunization History Most Recent Influenza Vaccination: 07/23/18 Most Recent Pneumonia Vaccination: 07/23/18 Review of Systems All Other Systems Reviewed And Are Negative: Yes Constitutional: Positive: Fatigue Skin: Positive: Negative Eyes: Positive: Negative ENT: Positive: Nasal Discharge - clear, Sinus Congestion, Sinus Pain/ Tenderness. Negative: Sore Throat Respiratory: Positive: Negative. Negative: Cough Cardiovascular: Positive: Negative. Negative: Chest Pain Neurological: Positive: Headache. Negative: Weakness, Paresthesia, Numbness Psychological: Positive: Negative Is Patient Immunocompromised?: No Physical Exam Triage Information Reviewed: Yes Appearance: Well-Appearing, No Pain Distress, Well-Nourished Vital Signs: Initial Vital Signs Temp 97.1 F 02/21/19 10:59 Pulse 66 02/21/19 10:59 Resp 16 02/21/19 10:59 BP 153/68 02/21/19 10:59 Pulse Ox 98 02/21/19 10:59 Vital Signs Reviewed: Yes Eyes: Positive: Conjunctiva Clear, Other: - PERRLA ENT: Positive: Pharynx normal, Nasal congestion, TMs normal, Sinus tenderness Neck exam: Normal Neck: Positive: Supple, Nontender, No Lymphadenopathy Respiratory Exam: Normal Cardiovascular Exam: Normal Cardiovascular: Positive: RRR Neurological Exam: Normal Neurological: Positive: Alert Psychological Exam: Normal Skin Exam: Normal Headache Course/Dx - Differential Dx/Diagnosis Differential Diagnosis/HQI/PQRI: Meningitis, Migraine, Sinus Headache, Subarachnoid Hemorrhage Provider Diagnosis: Sinusitis Discharge - Sign-Out/Discharge Documenting (check all that apply): Patient Departure All imaging exams completed and their final reports reviewed: No Studies - Discharge Plan Condition: Stable Disposition: HOME Prescriptions: Amoxicillin/Clavulanate TAB* [Augmentin TAB 875*] 875 mg PO BID #20 tab Patient Education Materials: Sinusitis (ED) Referrals: Atilio Hoyt MD [Primary Care Provider] - 2 Days (recheck blood pressure and headache) Additional Instructions: start augmentin antibiotic drink plenty of fluids Report to ER if symptoms worsen or symptoms occur at ANY time Tylenol as directed for pain - Billing Disposition and Condition Condition: STABLE Disposition: Home
== END 2019-02-21 11:33 | disposition home or self-care (01) ==
LOC: UCEAST 10:35
DX: J32.9 Chronic sinusitis, unspecified (principal); R53.83 Other fatigue; E78.5 Hyperlipidemia, unspecified; I11.9 Hypertensive heart disease without heart failure; Z95.2 Presence of prosthetic heart valve; Z79.01 Long term (current) use of anticoagulants; Z79.82 Long term (current) use of aspirin; Z87.891 Personal history of nicotine dependence
CPT/HCPCS: 99212; G0463

== ENCOUNTER 2019-02-26 09:18 | Inpatient (IN) | payer MEDICARE, BC ==
--- NOTE | 2019-02-26 09:40 | ED ---
Headache - HPI Summary HPI Summary: A 68 y/o M presents to ED c/o gradual onset diffuse MOSQUERA onset a week ago. He states not getting MOSQUERA often. He was seen at [facility] five days ago and given ABX for a sinus infection which he took, and he had some relief, but the MOSQUERA returned fully last night. Associated sx: mild photophobia, n/v. Aggravating factors: bending over. Pt had aortic valve replacement on Oct 30, 2018 in [place]. He is on blood thinners. 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 - Onset/Duration: Gradual Onset, Started weeks ago, Still Present Timing: Constant Location of Headache: Diffuse Aggravating Factor: Position Change - bending over Associated Signs And Symptoms: Nausea, Vomiting, Visual Changes - mild photophobia - Allergies/Home Medications Allergies/Adverse Reactions: Allergies Allergy/AdvReac Type Severity Reaction Status Date / Time No Known Allergies Allergy Verified 02/26/19 09:26 PMH/Surg Hx/FS Hx/Imm Hx Previously Healthy: No Endocrine/Hematology History: Denies: Hx Diabetes Cardiovascular History: Reports: Hx Hypertension Denies: Hx Pacemaker/ICD, Hx Peripheral Vascular Disease, Other Cardiovascular Problems/Disorders Respiratory History: Denies: Other Respiratory Problems/Disorders GI History: Denies: Other GI Disorders History: Reports: Other Problems/Disorders - bph Denies: Hx Renal Disease Musculoskeletal History: Denies: Hx Arthritis, Hx Osteoporosis, Other Musculoskeletal History Sensory History: Denies: Hx Contacts or Glasses, Hx Hearing Aid Opthamlomology History: Denies: Hx Contacts or Glasses Neurological History: Denies: Hx Headaches, Hx Seizures, Hx Transient Ischemic Attacks (TIA), Other Neuro Impairments/Disorders Psychiatric History: Denies: Hx Panic Disorder - Surgical History Surgery Procedure, Year, and Place: appendectomy, age 11, aortic valve replacement, aortic aneurysm Hx Anesthesia Reactions: No Infectious Disease History: No Infectious Disease History: Denies: Traveled Outside the [place] in Last 30 Days - Family History Known Family History: Positive: Hypertension, Other - cerebral aneurysm - brother - Social History Occupation: Employed Full-time Lives: With Family Alcohol Use: Daily Alcohol Amount: 1 glass wine Hx Substance Use: No Substance Use Type: Reports: None Hx Tobacco Use: Yes Smoking Status (MU): Former Smoker Amount Used/How Often: pack a day for 20 yrs Review of Systems Positive: Photophobia - mild Positive: Vomiting, Nausea Positive: Headache - diffuse All Other Systems Reviewed And Are Negative: Yes Physical Exam - Summary Physical Exam Summary: Appearance: The patient is well-nourished in no acute distress and in no acute pain. Skin: The skin is warm and dry and skin color reflects adequate perfusion. HEENT: The head is normocephalic and atraumatic. The pupils are equal and reactive. The conjunctivae are clear and without drainage. Nares are patent and without drainage. Mouth reveals moist mucous membranes and the throat is without erythema and exudate. The external ears are intact. The ear canals are patent and without drainage. The tympanic membranes are intact. Neck: the neck is supple with full range of motion and non-tender. There are no carotid bruits. There is no neck vein distension. Respiratory: Chest is non-tender. Lungs are clear to auscultation and breath sounds are symmetrical and equal. Cardiovascular: Heart is regular rate and rhythm. There is no murmur or rub auscultated. There is no peripheral edema and pulses are symmetrical and equal. Abdomen: The abdomen is soft and non-tender. There are normal bowel sounds heard in all four quadrants and there is no organomegaly palpated. Musculoskeletal: There is no back tenderness noted. Extremities are non-tender with full range of motion. There is good capillary refill. There is no peripheral edema or calf tenderness elicited. Neurological: Patient is alert and oriented to person, place and time. The patient has symmetrical motor strength in all four extremities. Cranial nerves are grossly intact. Deep tendon reflexes are symmetrical and equal in all four extremities. Psychiatric: The patient has an appropriate affect and does not exhibit any anxiety or depression. Triage Information Reviewed: Yes Vital Signs On Initial Exam: Initial Vitals Temp Pulse Resp BP Pulse Ox 97.4 F 85 18 191/90 95 02/26/19 09:20 02/26/19 09:20 02/26/19 09:20 02/26/19 09:20 02/26/19 09:20 Vital Signs Reviewed: Yes - [place] Coma Scale Best Eye Response: 4 - Spontaneous Best Motor Response: 6 - Obeys Commands Best Verbal Response: 5 - Oriented Coma Scale Total: 15 Diagnostics - Vital Signs Vital Signs Temp Pulse Resp BP Pulse Ox 02/26/19 09:20 97.4 F 85 18 191/90 95 - Laboratory Result Diagrams: 02/26/19 10:03 02/26/19 10:03 Lab Statement: Any lab studies that have been ordered have been reviewed, and results considered in the medical decision making process. - CT BRAIN CT CT Interpretation Completed By: Radiologist Summary of CT Findings: IMPRESSION: BIFRONTAL ACUTE ON SUBACUTE SUBDURAL HEMATOMAS WITH MINIMAL FALCINE EXTENSION. THERE IS NO. SHIFT. ED provider has reviewed this report. Headache Course/Dx - Course Course Of Treatment: Mr. Swanson started gradually with a frontal headache about a week ago. He was started on Augmentin for presumed sinusitis and did get better for a couple of days. Yesterday the headache returned and he comes in stating that it's relatively severe. He has no other symptoms with. It is exacerbated by bending forward. He is on Coumadin for a mechanical valve placed for repair of a congenital bicuspid aortic valve. His neurological exam was intact with no focality. He was nontoxic in appearance with stable vitals. His INR was found to be 3.[address] of the brain shows acute on chronic small subdurals bilaterally in the frontal lobes. I spoke with Dr. Brody and Dr. Boyd and their recommendation was to reverse the anticoagulation therefore the patient was given IM vitamin K and IV fresh frozen plasma. Dr. Pruitt was contacted for the hospitalist service for admission. - Diagnoses Provider Diagnoses: Acute on chronic intracranial subdural hematoma - Physician Notifications Discussed Care Of Patient With: Corky Rodriguez - radiology Time Discussed With Above Provider: 10:42 Instructed by Provider To: Other - Called re: Brain CT, there is a bifrontal acute on subacute subdural hematomas. - Critical Care Time Critical Care Time: 30-74 min Discharge - Sign-Out/Discharge Documenting (check all that apply): Patient Departure - ADMIT Patient Received Moderate/Deep Sedation with Procedure: No - Discharge Plan Condition: Stable Disposition: ADMITTED TO [facility] Referrals: Verónica Barros MD [Primary Care Provider] - - Billing Disposition and Condition Condition: STABLE Disposition: Admitted to [facility] - Attestation Statements Document Initiated by Scribe: Yes Documenting Scribe: SooYtoddg Rose Provider For Whom Scribe is Documenting (Include Credential): Dr. Ryan Calabrese MD Scribe Attestation: I, Christopher Rose, scribed for Dr. Ryan Calabrese MD on 02/26/19 at 1210. Scribe Documentation Reviewed: Yes Provider Attestation: The documentation as recorded by the elida, Christopher Rose accurately reflects the service I personally performed and the decisions made by me, Dr. Ryan Calabrese MD Status of Scribe Document: Viewed Consult Consult: 1115: Consult with Dr. Bhatti, neuro surgery Recommends reversing Coumadin and giving Keppra for sz. 1140: Consult with Dr. Boyd, cardio Agrees with reversing the anticoagulation therapy. 1149: Consult with Dr. San, hospitalist Will admit patient.
[2019-02-26] MEDS ORDERED: Ketorolac INJ* 30 MG/ML 1 ML VIAL IV PUSH ONE (09:52)
[2019-02-26] MEDS ORDERED: diPHENhydraMINE PO* 50 MG PO ONE (09:52)
[2019-02-26] MEDS ORDERED: Metoclopramide IV* 5 MG/ML 2 ML VIAL IV ONE (09:52)
[2019-02-26 10:16] LABS: ABS Lymphocytes 0.6 10^3/ul (1.0-4.8); ABS Monocytes 0.4 10^3/ul (0-0.8); ABS Neutrophils 6.4 10^3/ul (1.5-7.7); Eosinophil % 0.2 %; Hematocrit 35 % (42-52); Hemoglobin 11.2 g/dL (14.0-18.0); Lymphocyte % 8.6 %; Mean Corpuscular HGB Conc 32 g/dL (31-36); Mean Corpuscular Hemoglobin 27 pg (27-31); Mean Corpuscular Volume 85 fL (80-94); Mean Platelet Volume 9.7 fL (7.4-10.4); Platelet Count 193 10^3/uL (150-450); Red Blood Count 4.08 10^6 /uL (4.18-5.48); Red Cell Distribution Width 17 % (10.5-15); White Blood Count 7.5 10^3/uL (3.5-10.8)
[2019-02-26 10:17] LABS: INR 3.14 (0.82-1.09)
[2019-02-26 10:27] LABS: Albumin 4.1 g/dL (3.2-5.2); Albumin/Globulin Ratio 1.4 (1-3); BUN/Creatinine Ratio 24.5 (8-20); Calcium 9.4 mg/dL (8.6-10.3); EGFR African American 96.9 (>60); Globulin 2.9 g/dL (2-4); Potassium 4.2 mmol/L (3.5-5.0); Total Bilirubin 0.5 mg/dL (0.2-1.0)
[2019-02-26] MEDS ORDERED: levETIRAcetam 1000MG IVPREMIX* 1,000 MG/100 ML BAG IVPB ONE (11:23)
[2019-02-26] MEDS ORDERED: Phytonadione SUBCUT/IM Adult* 10 MG/ML AMP (IM or SQ not preferred route) IM ONE (11:41)
[2019-02-26] MEDS ORDERED: Morphine INJ* 2 MG/ML 1 ML SYRINGE (TWO MG - NEW SYRINGE VERSION) IV PRN (13:02)
[2019-02-26] MEDS ORDERED: Phytonadione IV (Adult)* 10 MG/ML 1 ML AMP IV ONE (13:06)
[2019-02-26] MEDS ORDERED: oxyCODONE TAB* 5 MG TAB PO PRN (13:07)
[2019-02-26] MEDS ORDERED: PHYTONADIONE 10 MG IVPB - ED ONCE IV STA ×2 (13:11)
[2019-02-26 14:19] LABS: INR 2.49 (0.82-1.09)
--- NOTE | 2019-02-26 14:25 | HP ---
CC: Dr. Harpreet Turcios, [place]; Dr. Uribe, Cardiology; Dr. Pemberton; Dr. Gregory Christian, Cardiology; Dr. Mike Jensen, Cardiothoracic Surgery, [place], [place]; Dr. Bhatti; Dr. Calabrese* HISTORY AND PHYSICAL: DATE OF ADMISSION: 02/26/19 PRIMARY CARE PROVIDER: Dr. Harpreet Turcios from [place]. CHIEF COMPLAINT: Headache. HISTORY OF PRESENT ILLNESS: Mr. Swanson is a 68-year-old male with history of recent mechanical aortic valve replacement by Dr. Jensen in [place] in October 2018 in this patient who used to have bicuspid aortic valve. The patient also had aortic arch repaired at that point. He had been on Coumadin postoperatively and apparently it had been difficult to control. He has had headaches for several days before 02/22/19. On 02/22/19, he went to [facility] for evaluation where he was diagnosed with sinusitis, treated with Augmentin which improved the headache for a couple of days, but then it recurred. Today, the patient comes into the ED with complaints of headaches and his INR was noted to be actually therapeutic at 3.14. The patient was noted to have on his CT bilateral subdural hematomas. Currently, the patient is sedated after receiving Benadryl IV together with Toradol. He also received a dose of [address] Calabrese from the ED discussed the case with Dr. Bhatti from Neurosurgery, who will see the patient in consultation. The patient is going to be admitted to the intensive care unit. PAST MEDICAL HISTORY: 1. History of bicuspid aortic valve, status post replacement with mechanical aortic valve and aortic arch repair on 10/30/[address] Mike Jensen from [facility]. 2. History of BPH. PAST SURGICAL HISTORY: 1. History of appendectomy. 2. History of TURP. MEDICATIONS AT HOME: Included: 1. Coumadin as above mentioned. 2. Augmentin 875 mg b.i.d. started by [facility] on 02/22/19. 3. Losartan 25 mg daily. 4. Acetaminophen on a p.r.n. basis. 5. Aspirin 81 mg daily. 6. Atorvastatin 40 mg daily. 7. Oxycodone on a p.r.n. basis at 5 mg every 6 hours. 8. Metoprolol 50 mg b.i.d. ALLERGIES: No known drug allergies. FAMILY HISTORY: Mother's history is unknown. Father of old age. SOCIAL HISTORY: The patient is a former smoker. He has history of drinking a glass of wine a day. His surrogate decision maker is his . REVIEW OF SYSTEMS: Difficult to obtain from this patient who got a dose of Benadryl and he keeps on falling asleep during the evaluation. He stated that the headache is better controlled. He denies any significant weakness or problems with walking or sensation deficit. He did vomit yesterday. His appetite has been poor for the past several days. He denies any chest pain or shortness of breath. All the remaining 12 systems were reviewed with the patient with the help of his and were otherwise negative. PHYSICAL EXAMINATION GENERAL: The patient is a very pleasant 68-year-old male, who is in no acute distress. The patient is lethargic, but when awakened he is oriented x3. VITAL SIGNS: Blood pressure of 121/60, heart rate of 56 and regular, respiratory rate 15, oxygen saturation 97% on room air, temperature of 97.4. HEENT: Head: Atraumatic, normocephalic. Eyes: Pupils are equal, reactive to light and accommodation. Oropharynx is clear. Mucosa moist. NECK: Supple. No JVD. No bruits bilaterally. RESPIRATORY: Clear to auscultation bilaterally. CARDIOVASCULAR: Regular rate and rhythm with sharp metallic mechanical aortic valve click on auscultation. ABDOMEN: Soft, nontender. Bowel sounds are present in all 4 quadrants. EXTREMITIES: There is no edema. Pulses are +2 bilaterally. No clubbing or cyanosis. NEUROLOGIC: On neuro evaluation, speech is clear. Cranial nerves II through XII are grossly intact. Motor strength is 5/5 bilaterally. Sensation grossly intact. DIAGNOSTIC STUDIES/LAB DATA: INR of 3.14. White blood cell count of 7.5, hemoglobin of 11.2, hematocrit of 35, and platelets of 193. Sodium was 141, potassium 4.2, chloride 110, carbon dioxide 26, BUN 23, creatinine 0.94. Liver function tests unremarkable. Lactic acid of 0.6. The patient's brain CT, impression: "Bifrontal acute on subacute subdural hematomas with minimal falcine extension. There is no shift." The patient's EKG is pending at the time of dictation. ASSESSMENT AND PLAN: 1. A 68-year-old male with mechanical aortic valve, who was placed on Coumadin postoperatively in October of 2018, presents with what appears to be nontraumatic bilateral subdural hematomas. The patient's anticoagulation is going to be reversed with FFPs as well as vitamin K as was discussed between Dr. Calabrese from emergency department and Dr. Bhatti from Neurosurgery. The patient is going to be placed in the intensive care unit with neuro checks every 2 hours. We will check the patient's INR day-to-day to continue his evaluation and further reversal of anticoagulation if needed. I will ask our cardiology team to see the patient in evaluation to help us with management of further anticoagulation in the future. 2. For the patient's history of hypertension, his losartan and metoprolol are going to be continued. 3. For DVT prophylaxis, it is contraindicated to use anticoagulation at this point in this patient with subdural hematomas, and SCDs are going to be applied. For the time being, the patient is going to be placed on bedrest until evaluated by the neurosurgeon. 4. The patient's code status is full and his surrogate is his . TIME SPENT: Approximately 65 minutes was spent on admission of this patient; more than half that time was spent [id number] with the patient during the interview and physical exam. ADDENDUM TO HISTORY AND PHYSICAL: DATE OF ADMISSION: 02/26/19 I discussed the case with both, Dr. Bhatti and Dr. Mike Jensen. Dr. Jensen noted that the patient's valve is produced by company named, [employer] and after 3 months, the patient's INR can go down to 1.5 to 2 to be therapeutic with this particular valve. At this point, the patient's goal INR would be 1.5 to 2. At this point, Dr. Jensen is comfortable with the patient being off anticoagulation up to approximately 7 days. It is also recommended that once the patient is stable from neurosurgical standpoint, his anticoagulation could be restarted. The patient does not need to be bridged and his Coumadin can be restarted at a lower dose to follow up as previously with INRs. There is a question if the patient should be observed while anticoagulated before discharge , placing the patient on heparin drip and monitoring is also a possibility. I discussed the case also with Dr. Bhatti, who agrees with the plan. For the time being, the patient is going to be entirely reversed with INR goal to be at around 1. In approximately 48 hours if the patient is neurologically stable, we will discuss with both Neurosurgery and Cardiothoracic Surgery from [facility], Dr. Jensen, restarting further anticoagulation, but as above mentioned per Dr. Jensen, the patient could be restarted on Coumadin without bridging. [id number]/CPS #: [id number]/CPS #: [id number] [facility]
--- NOTE | 2019-02-26 15:30 | HP ---
CC: PCP; Dr. Jensen; Dr. Bhatti; Dr. Pemberton; Dr. Gregory Christian HISTORY AND PHYSICAL: DATE OF ADMISSION: 02/26/19 ADDENDUM: I discussed the case with both, Dr. Bhatti and Dr. Mike Jensen. Dr. Jensen noted that the patient's valve is produced by company named, [employer] and after 3 months, the patient's INR can go down to 1.5 to 2 to be therapeutic with this particular valve. At this point, the patient's goal INR would be 1.5 to 2. At this point, Dr. Jensen is comfortable with the patient being off anticoagulation up to approximately 7 days. It is also recommended that once the patient is stable from neurosurgical standpoint, his anticoagulation could be restarted. The patient does not need to be bridged and his Coumadin can be restarted at a lower dose to follow up as previously with INRs. There is a question if the patient should be observed while anticoagulated before discharge , placing the patient on heparin drip and monitoring is also a possibility. I discussed the case also with Dr. hBatti, who agrees with the plan. For the time being, the patient is going to be entirely reversed with INR goal to be at around 1. In approximately 48 hours if the patient is neurologically stable, we will discuss with both Neurosurgery and Cardiothoracic Surgery from [facility], Dr. Jensen, restarting further anticoagulation, but as above mentioned per Dr. Jensen, the patient could be restarted on Coumadin without bridging. [id number]/[facility] #: [id number] [facility]ITAL[facility]
[2019-02-26 16:42] LABS: Urine Appearance Clear; Urine Bacteria Absent (Absent); Urine Bilirubin Negative (Negative); Urine Blood 1+ (Negative); Urine Color Yellow; Urine Glucose Negative (Negative); Urine Ketones Negative (Negative); Urine Nitrite Negative (Negative); Urine Protein Negative (Negative); Urine Red Blood Cell Trace(0-2/hpf) (Absent); Urine Specific Gravity 1.015 (1.010-1.030); Urine Urobilinogen Negative (Negative); Urine White Blood Cell Trace(0-5/hpf) (Absent)
[2019-02-26 18:15] LABS: INR 1.87 (0.82-1.09)
--- NOTE | 2019-02-26 18:49 | CONS ---
CC: Emmy Gallagher; Dr. Christian; Dr. Uribe; Hospitalist Service* CARDIOLOGY CONSULT: DATE OF CONSULT: 02/26/19 HISTORY OF PRESENT ILLNESS: I was asked by Hospitalist Service to see this pleasant 68-year-old male patient, who presented to the hospital with 1 week of headache and the CT scan was done this morning at [facility] that showed him to have bifrontal acute and subacute subdural hematoma. There is no shift. Repeat CT scan was just completed now, second one, the report is not immediately available. The patient currently is in the intensive care unit. Cardiology consult was further requested because of the patient's recent history of mechanical aortic valve replacement that was done at the [facility] ([place], [place]), Dr. Jensen. The patient does have known history of bicuspid aortic valve. The valve was put for the patient was On-X mechanical heart valve. I understand the goal of the INR was supposed to be between 1.5 to 2 starting from 01/28/19. The surgery was 10/30/18. The patient has no history of myocardial infarction. He did have the cath with Dr. Peck before his valve surgery that showed 50% LAD. He does have history of systemic arterial hypertension, history of tachycardia. He gives headaches. He was at [facility] a week ago, he was given antibiotic for sinusitis, but he is back again for the headaches. He is active. He gives no symptoms of chest pain. No nausea, no vomiting. No hematochezia. No skin rash. No abdominal pain. No syncope. No swelling in the lower extremities is appreciated. His review of all other systems essentially is negative. PAST MEDICAL HISTORY: As outlined above. History of recent echo in december 2018 , mild to moderate LVH, normal EF 55% to 60%, mildly to moderately dilated left atrium and normally functioning aortic mechanical valve. He had CT of the chest in July 2018, 5 cm ascending aorta aneurysm, arch 4.3, descending 3.9 cm. PAST SURGICAL HISTORY: History of appendicectomy, history of TURP, and aortic valve replacement. MEDICATIONS: Medications as an outpatient include: 1. Baby Aspirin 81 mg daily. 2. Coumadin adjusted to his INR. 3. Losartan 25 mg daily. 4. Lipitor 40 mg daily. 5. Metoprolol 50 mg twice daily. FAMILY HISTORY: No family history of premature CAD. SOCIAL HISTORY: He is , lives with . 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 He is a former smoker and quit in 2010. He occasionally drinks alcohol. No history of illicit drug use. REVIEW OF SYSTEMS: Review of all other systems essentially is negative. PHYSICAL EXAM: On exam, he is awake, alert, and oriented. He is not in acute distress. Vitals: Blood pressure is 141/58; pulse 62, sinus; and afebrile. Head and Neck Exam: Normocephalic, atraumatic head. Ears, Nose, and Throat: Essentially benign. Neck: Supple. JVP is not elevated. No carotid bruits. No masses in the neck are appreciated. Chest: Clear to auscultation. No rales , no wheeze. No added sounds appreciated. Heart: Normal S1, S2. No added sounds. No gallops, no rubs. There is a brisk mechanical valve and sternotomy wound healed well. Abdomen: Benign. Positive bowel sounds. Extremities: No edema, no cyanosis, no clubbing. Skin exam is normal. Psych: Normal affect and mood. COMPUTER TECHNICAL SUPPORT SPECIALIST: No focal deficits appreciated. DIAGNOSTIC STUDIES/LAB DATA: His labs showed the following: White blood cell count 7.5, hemoglobin 11.2, hematocrit 35, platelets 193. Chemistry: Sodium 141, potassium 4.2, chloride 110, BUN 23, creatinine 0.94. His EKG: Sinus rhythm, poor R-wave progression, nonspecific T abnormality. IMPRESSION: The patient is a 68-year-old male patient with: 1. Presentation with bifrontal acute on subacute subdural hematoma, not traumatic in nature. 2. Recent mechanical aortic valve replacement. It was the On-X mechanical valve with graft to the aneurysmal ascending aorta, Dr. Jensen, [facility] ([place], [place]), 10/30/18. 3. Systemic arterial hypertension. 4. Normal left ventricular systolic function. 5. History of coronary artery disease, although was mild, up to 50% LAD before his cardiac surgery. PLAN: The patient currently is stable. I will be discussing him with Dr. Jensen regarding anticoagulation. Also. I will discuss him with Dr. Bhatti regarding anticoagulation. I will discuss him with Dr. San. I do understand Dr. San just discussed actually this patient with Dr. Jensen and Dr. Bhatti and per her note that Dr. Jensen is comfortable with the patient being off anticoagulation up to approximately 7 days. His target INR should be 1.5 to 2. It is also recommended that once the patient is stable from neurological standpoint, his anticoagulation could be started. No need for bridging. For discharge, starting the patient on heparin drip is also a consideration to make sure his INR does not go too high and recommendation is to reverse his INR if the patient is neurologically stable. Thank you very much for asking us to participate in the care of this patient, and we will follow closely with you. I answered all their concerns and questions up to their satisfaction. [id number]/CPS #: [id number] LAISHA
[2019-02-26] MEDS: Acetaminophen TAB* 325 MG PO PRN (19:17)
--- NOTE | 2019-02-26 19:38 | CONS ---
CONSULTATION REPORT: DATE OF CONSULT: 02/26/19 HISTORY OF PRESENT ILLNESS: The patient is a very pleasant 68-year-old gentleman with a history of mechanical aortic valve placement by Dr. Jensen in [facility] in [place] in October 2018, who was on Coumadin. The patient came to the emergency room because of complaints of headache. The patient reports that his headaches started approximately 1 week ago. He was treated for possible sinusitis, and because of the persistence of his headaches, he came to the emergency room. Requested to see the patient by Dr. Calabrese because of CT scan findings consistent with bilateral [id number] subdural hematomas. The patient had a prolonged INR. The patient denies any history of trauma. Denies any neck or back pain. He does have some mild headache, but he denies any nausea or vomiting. He denies any vision changes. He denies any history of seizures. He denies any weakness, numbness, or tingling of his extremities. He ambulates without significant difficulty. He denies any urinary or GI incontinence. 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 He is , lives with his and he has 3 grownup sons. PAST MEDICAL HISTORY: Bicuspid aortic valve, status post replacement on by Dr. Mike Jensen in [facility]. History of BPH. PAST SURGICAL HISTORY: History of appendectomy, mechanical aortic valve placement, history of TURP. MEDICATIONS: The patient was on: 1. Coumadin. 2. Augmentin. 3. Losartan. 4. Acetaminophen. 5. Aspirin 81. 6. Atorvastatin. 7. Oxycodone. 8. Metoprolol. ALLERGIES: No known drug allergies. FAMILY HISTORY: Noncontributory. SOCIAL HISTORY: The patient is a former smoker. He is not smoking any more. He reports that he consumes a glass of wine everyday. Recreational drug use negative. PHYSICAL EXAM: The patient is not in acute distress. He is awake, alert, and oriented x3. His pupils are equal and reactive. Cranial nerves II through XII are grossly intact. Motor 4 to 5/5 in all extremities. No pronator drift. Sensory grossly intact to light touch. Deep tendon reflexes +1 bilaterally. No clonus, no Babinski's. Michael's is negative. Straight leg test is negative in the sitting position. DICTATION ENDS HERE. [id number]/[facility] #: [id number] [facility]
[2019-02-26] MEDS: NS 0.9% 1000 ML** 1,000 ML IV SCH (20:00)
[2019-02-26] MEDS: Metoprolol Tartrate TAB* 25 MG PO SCH (20:29)
--- NOTE | 2019-02-26 22:34 | CONS ---
CONSULTATION REPORT: DATE OF CONSULT: 02/26/19 HISTORY OF PRESENT ILLNESS: The patient is a very pleasant 68-year-old gentleman with a history of recent mechanical aortic valve replacement by Dr. Jensen in [facility] in [place] in October 2018, who is on Coumadin, who came to the emergency room because of complaints of headache. Requested to see the patient by Dr. Calabrese in the emergency room because of CT scan finding consistent with bilateral acute-on- chronic subdural hematomas. The patient reports that approximately 1 week ago started experiencing headaches and this persisted. He was treated for sinus infection by his primary physician, and because of the persistence of headaches, came to the emergency room where CT scan revealed the above findings. The patient denies any history of trauma. Denies any neck or back pain. Denies any vision or hearing loss or speech difficulties. Denies any seizures. He does have some mild headache. He denies any weakness, numbness, or tingling of his extremities. He ambulates without significant difficulties. He denies any urinary or GI incontinence. 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 He is , lives with his , and he has 3 grownup children. PAST MEDICAL HISTORY: History of bicuspid aortic valve, history of BPH. PAST SURGICAL HISTORY: Aortic valve replacement with mechanical valve, appendectomy, TURP. MEDICATIONS: The patient was on: 1. Coumadin. 2. Augmentin. 3. Losartan. 4. Acetaminophen. 5. Aspirin. 6. Atorvastatin. 7. Oxycodone. 8. Metoprolol. ALLERGIES: No known drug allergies. FAMILY HISTORY: Noncontributory. SOCIAL HISTORY: Tobacco negative. The patient is a former smoker. Alcohol, 1 drink of wine every day. Recreational use negative. PHYSICAL EXAM: The patient is not in acute distress. He is awake, alert, oriented x3. His pupils are equal and reactive. Cranial nerves II through XII are grossly intact. Motor 4 to 5/5 in all extremities. No pronator drift. Sensory grossly intact to light touch. Deep tendon reflexes +1 bilaterally. No clonus, no Babinski's. Michael's negative. Straight-leg test negative in sitting position. The patient has no tenderness to palpation in the cervical, thoracic, or lumber spine. He has free range of motion of cervical spine. DIAGNOSTIC STUDIES/LAB DATA: The patient had a CT scan of the brain revealing bilateral frontal chronic with subdural hematomas with an acute component with also a hemispheric subdural and mild convexity subarachnoid hemorrhage. ASSESSMENT: The patient is a very pleasant 68-year-old gentleman with a history of mechanical aortic valve, on Coumadin, presenting with prolonged INR and CT scan finding consistent with bilateral frontal subdural hematomas and hemispheric subdural hematoma. PLAN: The patient at this point is doing clinically quite well. We recommend to reverse his coagulopathy. The patient was given FFP and vitamin K. We will continue seizure prophylaxis for 7 days, avoidance of hypertension, and repeat CT scan in 6 hours . We will consider CTA in the morning. Hematology consult may be considered if his INR will be difficult to normalize or has progression of his hematomas to exclude occult coagulopathy superposed on his Coumadin coagulopathy. Discussed in extent with the patient. He understands this very difficult condition and also understands that reversal of his coagulopathy may put him at risk of thrombosis or thromboembolic events include stroke, paralysis , and . Dr. San kindly admitted the patient and contacted Dr. Jensen, who reported that the patient's valve was produced by the company named "[employer]" and after 3 months, the patient's INR goal could be down to 1.5 to [address] Jensen is comfortable, when contacted by Dr. San, with the patient being off anticoagulation for up to 7 days. We will monitor his progress with serial neurological examinations in the ICU as well as repeating CT scan and reevaluate the option of restarting anticoagulation. Full instructions given to the patient. Please see Dr. San's care. Thanks you for allowing us to participate in the care of this patient. Please do not hesitate to contact our office in case you have any further questions or concerns regarding the care of this patient. [id number]/[facility] #: [id number] LAISHA
[2019-02-26 22:35] LABS: INR 1.68 (0.82-1.09)
[2019-02-27] MEDS: levETIRAcetam 1000MG IVPREMIX* 1,000 MG/100 ML BAG IVPB SCH ×2 (00:11→11:44)
[2019-02-27] MEDS: Acetaminophen TAB* 325 MG PO PRN ×5 (00:18→22:31)
[2019-02-27 01:56] LABS: INR 1.55 (0.82-1.09)
[2019-02-27] MEDS: Morphine 4 MG/ML VIAL (1 ml) 4 MG/ML VIAL IV PRN ×2 (04:23→21:11)
[2019-02-27 05:16] LABS: ABS Eosinophils 0.2 10^3/ul (0-0.6); ABS Lymphocytes 1.4 10^3/ul (1.0-4.8); ABS Monocytes 0.6 10^3/ul (0-0.8); ABS Neutrophils 4.7 10^3/ul (1.5-7.7); Eosinophil % 2.3 %; Hematocrit 33 % (42-52); Hemoglobin 10.7 g/dL (14.0-18.0); Lymphocyte % 20.9 %; Mean Corpuscular HGB Conc 33 g/dL (31-36); Mean Corpuscular Hemoglobin 28 pg (27-31); Mean Corpuscular Volume 84 fL (80-94); Mean Platelet Volume 9.4 fL (7.4-10.4); Platelet Count 189 10^3/uL (150-450); Red Blood Count 3.86 10^6 /uL (4.18-5.48); Red Cell Distribution Width 17 % (10.5-15); White Blood Count 6.9 10^3/uL (3.5-10.8)
[2019-02-27 05:20] LABS: INR 1.42 (0.82-1.09)
[2019-02-27 05:31] LABS: BUN/Creatinine Ratio 21.5 (8-20); Calcium 9.2 mg/dL (8.6-10.3); EGFR African American 98.1 (>60); Potassium 3.7 mmol/L (3.5-5.0)
[2019-02-27] MEDS ORDERED: Losartan TAB* 25 MG PO SCH (09:00)
[2019-02-27] MEDS: Metoprolol Tartrate TAB* 25 MG PO SCH ×3 (09:45→21:53)
--- NOTE | 2019-02-27 10:57 | PN ---
Progress Note - Progress Note Date of Service: 02/27/19 SOAP: Subjective: []Patietn seen in ICU this am. No events ON. Objective: []VSS, Afebrile AAOx3 RUY, CN II-XII grossly intact Motor 5/5 all extremities Sensory grossly intact to light touch Assessment: []68 yom lorraine SDH, on Coumadin sp Aortic valve replacement with mechanical valve. Plan: []Monitor VS, Neurochecks CT this am grossly unchanged Repeat CT in am, Obtain CTA Monitor INR Appreciate IM care. Ortiz Bhatti MD
--- NOTE | 2019-02-27 11:05 | ECHO ---
*[facility]* [place] [address] Fax #: [phone] Transthoracic Echocardiogram Patient: Sky, Height: 69 in / Bryson Gomez 175.3 cm : 1950 Weight: 156.7 lb / Study Date: 02/27/2019 71.2 kg Age: 68 BP: 120 / 63 Gender: M BMI/BSA: 23.2 HR: 54 bpm kg/m^2 / 1.86 m^2 *[place] Hand: * Loli Kelly RDCS RN *Referring Physician: Bina Ashley *Reading Physician: Soha Schneider MD Indications: Aortic Valve Disorder. History: Risk factors: Former tobacco use. Hypertension. Labs, prior tests, procedures, and surgery: Aortic valve replacement with a mechanical valve and graft to the ascending aorta. Conclusions Summary: 1. Impressions: The study is unchanged since the study of 01/05/2019. 2. Left ventricle: The cavity size is normal. Wall thickness is moderately increased. Systolic function is normal. The estimated ejection fraction is 55-60%. 3. Left atrium: The atrium is mildly dilated. 4. Right atrium: The atrium is mildly dilated. 5. Aortic valve: There is a mechanical prosthetic valve. And functioning normally. There is mild regurgitation. 6. Tricuspid valve: There is trace to mild regurgitation. 7. Aortic arch: The aortic arch is not well visualized. It is mildly dilated. Study data: Transthoracic echocardiogram. Procedure: Transthoracic echocardiography was performed. Image quality was fair. Complete 2D, spectral Doppler, and color flow Doppler. Patient status: Inpatient. Patient room number: ICU 13. Rhythm: Bradycardia. Findings Left ventricle: The cavity size is normal. Wall thickness is moderately increased. Systolic function is normal. The estimated ejection fraction is 55-60%. There are no regional wall motion abnormalities. Right ventricle: The cavity size is normal. Systolic function is normal. Ventricular septum: Ventricular septal wall motion has a postoperative appearance. Left atrium: The atrium is mildly dilated. Right atrium: The atrium is mildly dilated. Mitral valve: The leaflets are mildly thickened. There is no evidence of stenosis. There is mild regurgitation. The peak diastolic gradient is 2.8 mm Hg. Aortic valve: There is a mechanical prosthetic valve. And functioning normally. There is mild regurgitation. The LVOT to aortic valve VTI ratio is 0.47. The valve area by the velocity-time integral method is 1.50 cm^2. The valve area index by the velocity-time integral method is 0.81 cm^2/m^2. The valve area by the peak velocity method is 1.50 cm^2. The valve area index by the peak velocity method is 0.81 cm^2/m^2. The ratio of LVOT to aortic valve mean velocity is 0.48. The valve area by the mean velocity method is 1.5 cm^2. The valve area index by the mean velocity method is 0.81 cm^2/m^2. The mean systolic gradient is 12.0 mm Hg. The peak systolic gradient is 22.0 mm Hg. Tricuspid valve: The valve is structurally normal. There is no evidence of stenosis. There is trace to mild regurgitation. Pulmonic valve: The valve is structurally normal. There is no evidence of stenosis. There is trivial regurgitation. The peak systolic gradient is 3.0 mm Hg. Aorta: Aortic root: The aortic root is not dilated. Ascending aorta: The ascending aorta is not dilated. Aortic arch: The aortic arch is not well visualized. It is mildly dilated. Pericardium: There is no pericardial effusion. Pulmonary arteries: The main pulmonary artery is normal-sized. Systemic veins: Inferior vena cava: The vessel is mildly dilated. The respirophasic diameter changes are in the normal range (>= 50%). Measurements Left ventricle Value Ref Right atrium Value Ref LISSETTE, LAX (L) 4.1 cm 4.2 - 5.8 ML dim, ES, A4C (H) 5.0 cm 2.6 - 4.4 ESD, LAX 2.8 cm 2.5 - 4.0 SI dim, ES, A4C (H) 5.7 cm 3.4 - 5.3 FS, LAX 32 % 25 - 43 PW, ED, LAX (H) 1.5 cm 0.6 - 1.0 Aortic valve Value Ref IVS/PW, ED 1.06 Edie diam, ED 2.2 cm --------- E', lat edie, TDI 12.6 cm/sec >=10.0 Peak v, S 2.35 m/sec --- ------ E/e', lat edie, 7 Mean v, S 1.57 m/sec ------ --- TDI VTI, S 49.9 cm --------- E', med edie, TDI (L) 6.6 cm/sec >=7.0 Mean grad, S 12.0 mm Hg --- ------ E/e', med edie, 13 Peak grad, S 22.0 mm Hg ------ --- TDI FLORI, VTI 1.50 cm^2 --------- E', avg, TDI 9.6 cm/sec FLORI, Vmax 1.50 cm^2 ------ --- E/e', avg, TDI 9 <=14 AR peak v 6.14 m/sec --- ------ AR PHT 581 ms --------- LVOT Value Ref AR peak grad 151 mm Hg --------- Diam, S 2.00 cm Area 3.1 cm^2 Mitral valve Value Ref Peak vy, S 1.1 m/sec Peak E 0.83 m/sec --------- Mean vy, S 0.75 m/sec Peak A 0.52 m/sec --------- VTI, S 23.3 cm Decel time 229 ms --------- Mean grad, S 3 mm Hg Peak grad, D 2.8 mm Hg --------- SV 73 ml Peak E/A ratio 1.6 --------- Ventricular septum Value Ref Aortic root Value Ref IVS, ED, LAX (H) 1.6 cm 0.6 - 1.0 Root diam 2.9 cm <4.0 Right ventricle Value Ref Ascending aorta Value Ref LISSETTE, LAX 2.7 cm AAo AP diam, S 2.4 cm --------- LISSETTE minor ax, 2.6 cm 1.9 - 3.5 A4C mid Aortic arch Value Ref Arch diam 3.8 cm --------- Left atrium Value Ref AP dim, ES (H) 4.20 cm 3.00 - Decending aorta Value Ref 4.00 Katerina peak vy 0.49 m/sec --------- ML dim, A4C 4.3 cm SI dim, A4C 6.2 cm Inferior vena cava Value Ref Vol/bsa, ES, 1-p 29 ml/m^2 12 - 37 Diam 2.2 cm --------- A4C Vol/bsa, ES, 1-p 33 ml/m^2 11 - 43 A2C Vol/bsa, ES, A/L 33 ml/m^2 16 - 34 Legend: (L) and (H) qi values outside specified reference range. Prepared and electronically signed by Soha Uribe MD 02/27/2019 11:04
[2019-02-27] MEDS: NS 0.9% 1000 ML** 1,000 ML IV SCH (11:46)
[2019-02-27 12:15] LABS: INR 1.33 (0.82-1.09)
[2019-02-27] MEDS ORDERED: Losartan TAB* 25 MG PO ONE (13:06)
--- NOTE | 2019-02-27 16:32 | PN ---
Subjective Date of Service: 02/27/19 Interval History: Seen in ICU. complains of headache. denies any other neurological deficit. discussed with NS and recommended to keep him off warfarin and conservative therapy for now unless he develops new neuro deficit. repeat CT head in am and CTA in am Past Medical History: Unchanged from Admission Objective Active Medications: Acetaminophen (Tylenol Tab*) 650 mg PO Q4H PRN PRN Reason: FEVER/PAIN Last Admin: 02/27/19 10:34 Dose: 650 mg Sodium Chloride (Ns 0.9% 1000 Ml) 1,000 mls @ 75 mls/hr IV PER RATE [facility] Last Admin: 02/27/19 11:46 Dose: 75 mls/hr Levetiracetam (Keppra Iv Premix*) 1,000 mg in 100 mls @ 400 mls/hr IVPB Q12H [facility] Last Admin: 02/27/19 11:44 Dose: 400 mls/hr Losartan Potassium (Cozaar Tab*) 50 mg PO DAILY [facility] Metoprolol Tartrate (Lopressor Tab*) 50 mg PO BID [facility] Last Admin: 02/27/19 09:45 Dose: 50 mg Morphine Sulfate (Morphine 4 Mg/Ml Vial (1 Ml)) 1 mg IV Q4H PRN PRN Reason: PAIN - MILD Last Admin: 02/27/19 04:23 Dose: 1 mg Oxycodone HCl (Roxycodone Tab*) 5 mg PO Q6H PRN PRN Reason: PAIN Last Admin: 02/27/19 09:45 Dose: 5 mg Vital Signs - 8 hr 02/27/19 02/27/19 02/27/19 08:30 09:00 09:31 Temperature Pulse Rate 53 60 78 Respiratory 16 17 22 Rate Blood Pressure 144/64 138/68 175/87 (mmHg) O2 Sat by Pulse 96 97 97 Oximetry 02/27/19 02/27/19 02/27/19 10:00 10:30 11:00 Temperature Pulse Rate 81 66 61 Respiratory 15 10 10 Rate Blood Pressure 164/71 161/69 151/70 (mmHg) O2 Sat by Pulse 96 95 94 Oximetry 02/27/19 02/27/19 02/27/19 11:30 11:32 12:00 Temperature 97.7 F Pulse Rate 54 61 Respiratory 13 7 Rate Blood Pressure 162/92 156/83 (mmHg) O2 Sat by Pulse 96 96 Oximetry 02/27/19 02/27/19 02/27/19 12:02 12:30 13:00 Temperature Pulse Rate 62 63 60 Respiratory 11 14 16 Rate Blood Pressure 171/71 155/74 (mmHg) O2 Sat by Pulse 95 96 95 Oximetry 02/27/19 02/27/19 02/27/19 13:01 13:30 14:00 Temperature Pulse Rate 60 61 Respiratory 2 19 19 Rate Blood Pressure 141/73 (mmHg) O2 Sat by Pulse 96 96 Oximetry 02/27/19 02/27/19 02/27/19 14:01 14:30 15:00 Temperature Pulse Rate 62 57 57 Respiratory 19 15 12 Rate Blood Pressure 185/87 154/77 154/82 (mmHg) O2 Sat by Pulse 96 96 96 Oximetry 02/27/19 02/27/19 02/27/19 15:30 15:57 16:00 Temperature 97.8 F Pulse Rate 55 57 Respiratory 14 10 Rate Blood Pressure 164/78 (mmHg) O2 Sat by Pulse 96 96 Oximetry Oxygen Devices in Use Now: None Appearance: Awake, no acute distress. resting comfortably Eyes: No Scleral Icterus, - - EOMI Ears/Nose/Mouth/Throat: NL Teeth, Lips, Gums, Mucous Membranes Moist Neck: NL Appearance and Movements; NL JVP, Trachea Midline Respiratory: Symmetrical Chest Expansion and Respiratory Effort, Clear to Auscultation Cardiovascular: NL Sounds; No Murmurs; No JVD, - - Positive murmur Abdominal: NL Sounds; No Tenderness; No Distention Extremities: No Edema Skin: No Rash or Ulcers Neurological: Alert and Oriented x 3, NL Muscle Strength and Tone Result Diagrams: 02/27/19 05:06 02/27/19 05:06 Microbiology and Other Data: Microbiology 02/26/19 16:04 Urine Culture - Final Urine No Growth (<1,000 CFU/mL) 02/26/19 14:44 Nasal Screen MRSA (PCR) - Final Nasal Mrsa Not Detected Assess/Plan/Problems-Billing Assessment: 68 y/o male admitted for weakness and subdural hematoma (on warfarin for his mechanical valve). Neurosurgery on the case. - Patient Problems (1) Subdural hematoma Current Visit: Yes Status: Acute Code(s): S06.5X9A - TRAUM SUBDR HEM W LOC OF UNSP DURATION, INIT SNOMED Code(s): 404628010 Comment: - Neurosurgery on the case - Continue to monitor in ICU - No plan for surgery at this time. But this can change pending his clinical progression - It was approved to hold his warfarin for total 7 days as per previous discussion between admitting hospitalist and his cardiothoracic surgeon - Warfarin on hold day # 11/27 - Control his BP. Increased losartan to 50 mg today. continue his lopressor 50 mg bid (2) Aortic valve replaced Current Visit: Yes Status: Acute Code(s): Z95.2 - PRESENCE OF PROSTHETIC HEART VALVE SNOMED Code(s): 6160469344535 Comment: - s/p AVR replacement on 10/30/18. produced by [employer] and the goal of INR once resumed ok to be between 1.5-2.0 for his kind of valve. See H& P for full documentation of the conversation between admitting hospitalist and his cardiothoracic surgeon - It was approved to hold his warfarin for total 7 days as per previous discussion between admitting hospitalist and his cardiothoracic surgeon - Warfarin on hold day # 11/27 - Control his BP. Increased losartan to 50 mg today. continue his lopressor 50 mg bid (3) Aortic aneurysm Current Visit: No Status: Acute Code(s): I71.9 - AORTIC ANEURYSM OF UNSPECIFIED SITE, WITHOUT RUPTURE SNOMED Code(s): 49499140 Comment: Echo done 02/27/19 reveals prosthetic valve and aortic arch mildly dilated (4) Bicuspid aortic valve Current Visit: No Status: Acute Code(s): Q23.1 - CONGENITAL INSUFFICIENCY OF AORTIC VALVE SNOMED Code(s): 12647495 Comment: - s/p AVR replacement on 10/30/18. produced by [employer] and the goal of INR once resumed ok to be between 1.5-2.0 for his kind of valve. See H& P for full documentation of the conversation between admitting hospitalist and his cardiothoracic surgeon - It was approved to hold his warfarin for total 7 days as per previous discussion between admitting hospitalist and his cardiothoracic surgeon - Warfarin on hold day # 11/27 - Control his BP. Increased losartan to 50 mg today. continue his lopressor 50 mg bid (5) DVT prophylaxis Current Visit: No Status: Acute Code(s): TEY0081 - SNOMED Code(s): 463665767 Comment: - SCDs and Ambulation
[2019-02-27] MEDS: hydrALAZINE IV* 20 MG/ML VIAL IV SLOW PU PRN (20:00)
[2019-02-28] MEDS: levETIRAcetam 1000MG IVPREMIX* 1,000 MG/100 ML BAG IVPB SCH ×2 (00:15→12:17)
[2019-02-28] MEDS: hydrALAZINE IV* 20 MG/ML VIAL IV SLOW PU PRN (00:19)
[2019-02-28] MEDS: NS 0.9% 1000 ML** 1,000 ML IV SCH (04:22)
[2019-02-28] MEDS: Acetaminophen TAB* 325 MG PO PRN ×2 (04:26→08:42)
[2019-02-28 06:36] LABS: ABS Basophils 0.1 10^3/ul (0-0.2); ABS Eosinophils 0.2 10^3/ul (0-0.6); ABS Lymphocytes 1.4 10^3/ul (1.0-4.8); ABS Monocytes 0.5 10^3/ul (0-0.8); ABS Neutrophils 5.1 10^3/ul (1.5-7.7); Eosinophil % 2.3 %; Hematocrit 36 % (42-52); Hemoglobin 11.7 g/dL (14.0-18.0); Lymphocyte % 19.9 %; Mean Corpuscular HGB Conc 33 g/dL (31-36); Mean Corpuscular Hemoglobin 27 pg (27-31); Mean Corpuscular Volume 84 fL (80-94); Mean Platelet Volume 9.1 fL (7.4-10.4); Platelet Count 208 10^3/uL (150-450); Red Blood Count 4.28 10^6 /uL (4.18-5.48); Red Cell Distribution Width 17 % (10.5-15); White Blood Count 7.3 10^3/uL (3.5-10.8)
[2019-02-28 06:40] LABS: INR 1.21 (0.82-1.09)
[2019-02-28 07:00] LABS: BUN/Creatinine Ratio 14.5 (8-20); Calcium 9.2 mg/dL (8.6-10.3); EGFR African American 123.8 (>60); EGFR Non-African American 102.3 (>60); Magnesium 1.9 mg/dL (1.9-2.7); Phosphorus 2.7 mg/dL (2.5-5.0); Potassium 3.4 mmol/L (3.5-5.0)
[2019-02-28] MEDS: Losartan TAB* 25 MG PO SCH (08:42)
[2019-02-28] MEDS: Metoprolol Tartrate TAB* 25 MG PO SCH ×3 (08:42→21:09)
[2019-02-28] MEDS ORDERED: Potassium Chlor TAB* 20 MEQ TAB.ER PO ONE (08:51)
[2019-02-28] MEDS ORDERED: Iohexol 350* (CONTRAST) 500 ML MDV IV ONE (09:07)
--- NOTE | 2019-02-28 11:34 | PN ---
Progress Note - Progress Note Date of Service: 02/28/19 SOAP: Subjective: [] Patient seen in ICU this am. No events ON. Objective: []VSS, Afebrile AAOx3 RUY, CN II-XII grossly intact Motor 5/5 all extremities Sensory grossly intact to light touch Laboratory Tests 02/28/19 02/28/19 02/28/19 06:25 06:25 06:25 WBC 7.3 Plt Count 208 INR (Anticoag Therapy) 1.21 H Sodium 143 Magnesium 1.9 Assessment: []68 yom lorraine SDH, on Coumadin sp Aortic valve replacement with mechanical valve. Plan: []Monitor VS, Neurochecks CT this am grossly unchanged. CTA negative for aneurysm Monitor INR SZ prophylaxis for 7 days. Keep Mg level above 2 Ok to transfer to floor on telemetry from NS standpoint. Appreciate IM care. Ortiz Bhatti MD
--- NOTE | 2019-02-28 14:40 | PN ---
Subjective Date of Service: 02/28/19 Interval History: Patient seen today in ICU. His headache improved /10. No nausea or vomit. His BP improved with the increase of losartan and metoprolol. discussed with hourly sales staff and patient was cleared to be transferred out of the ICU. Will transfer him to [facility] with tele Past Medical History: Unchanged from Admission Objective Active Medications: Acetaminophen (Tylenol Tab*) 650 mg PO Q4H PRN PRN Reason: FEVER/PAIN Last Admin: 02/28/19 08:42 Dose: 650 mg Hydralazine HCl (Apresoline Iv*) 5 mg IV SLOW PU Q4H PRN PRN Reason: BLOOD PRESSURE Last Admin: 02/28/19 00:19 Dose: 5 mg Sodium Chloride (Ns 0.9% 1000 Ml) 1,000 mls @ 75 mls/hr IV PER RATE [facility] Last Admin: 02/28/19 04:22 Dose: 75 mls/hr Levetiracetam (Keppra Iv Premix*) 1,000 mg in 100 mls @ 400 mls/hr IVPB Q12H [facility] Last Admin: 02/28/19 12:17 Dose: 400 mls/hr Losartan Potassium (Cozaar Tab*) 50 mg PO DAILY [facility] Last Admin: 02/28/19 08:42 Dose: 50 mg Metoprolol Tartrate (Lopressor Tab*) 75 mg PO BID [facility] Last Admin: 02/28/19 12:14 Dose: 25 mg Morphine Sulfate (Morphine 4 Mg/Ml Vial (1 Ml)) 1 mg IV Q4H PRN PRN Reason: PAIN - MILD Last Admin: 02/27/19 21:11 Dose: 1 mg Oxycodone HCl (Roxycodone Tab*) 5 mg PO Q6H PRN PRN Reason: PAIN Last Admin: 02/27/19 09:45 Dose: 5 mg Vital Signs - 8 hr 02/28/19 02/28/19 02/28/19 07:00 07:30 08:00 Temperature 97.2 F Pulse Rate 78 75 98 Respiratory 18 1 16 Rate Blood Pressure 152/80 136/84 133/78 (mmHg) O2 Sat by Pulse 95 96 95 Oximetry 02/28/19 02/28/19 02/28/19 08:30 09:00 09:49 Temperature Pulse Rate 106 79 Respiratory 17 18 15 Rate Blood Pressure 161/93 156/80 (mmHg) O2 Sat by Pulse 96 97 Oximetry 02/28/19 02/28/19 02/28/19 10:00 10:30 11:00 Temperature Pulse Rate 72 87 76 Respiratory 10 18 12 Rate Blood Pressure 146/78 156/82 144/78 (mmHg) O2 Sat by Pulse 95 94 96 Oximetry 02/28/19 02/28/19 02/28/19 11:30 12:00 12:01 Temperature 98.8 F Pulse Rate 78 73 69 Respiratory 0 19 18 Rate Blood Pressure 140/79 141/80 (mmHg) O2 Sat by Pulse 95 96 96 Oximetry 02/28/19 02/28/19 02/28/19 12:31 13:00 13:01 Temperature Pulse Rate 77 69 71 Respiratory 23 8 10 Rate Blood Pressure 162/84 141/78 (mmHg) O2 Sat by Pulse 96 96 96 Oximetry 02/28/19 02/28/19 13:30 14:00 Temperature Pulse Rate 73 77 Respiratory 15 21 Rate Blood Pressure 141/77 143/88 (mmHg) O2 Sat by Pulse 96 96 Oximetry Oxygen Devices in Use Now: None Appearance: awake, alert no distress Eyes: No Scleral Icterus, PERRLA, - - EOMI Ears/Nose/Mouth/Throat: NL Teeth, Lips, Gums, Mucous Membranes Moist Neck: NL Appearance and Movements; NL JVP, Trachea Midline Respiratory: Symmetrical Chest Expansion and Respiratory Effort, Clear to Auscultation Cardiovascular: NL Sounds; No Murmurs; No JVD, RRR, No Edema Abdominal: NL Sounds; No Tenderness; No Distention Extremities: No Edema Skin: No Rash or Ulcers Neurological: Alert and Oriented x 3 Result Diagrams: 02/28/19 06:25 02/28/19 06:25 Microbiology and Other Data: Microbiology 02/26/19 16:04 Urine Culture - Final Urine No Growth (<1,000 CFU/mL) 02/26/19 14:44 Nasal Screen MRSA (PCR) - Final Nasal Mrsa Not Detected Assess/Plan/Problems-Billing Assessment: 68 y/o male admitted for weakness and subdural hematoma (on warfarin for his mechanical valve). Neurosurgery on the case. - Patient Problems (1) Subdural hematoma Current Visit: Yes Status: Acute Code(s): S06.5X9A - TRAUM SUBDR HEM W LOC OF UNSP DURATION, INIT SNOMED Code(s): 329916329 Comment: - Neurosurgery on the case - cleared to transfer to from ICU to [address] [place] [address] - No plan for surgery at this time. But this can change pending his clinical progression - It was approved to hold his warfarin for total 7 days as per previous discussion between admitting hospitalist and his cardiothoracic surgeon - Warfarin on hold day # 3 - Control his BP. Improved with losartan to 50 mg today. and with increase of lopressor to continue his lopressor 75 mg bid (2) Aortic valve replaced Current Visit: Yes Status: Acute Code(s): Z95.2 - PRESENCE OF PROSTHETIC HEART VALVE SNOMED Code(s): 4745268547692 Comment: - s/p AVR replacement on 10/30/18. Produced by [employer] and the goal of INR once warfarin resumed ok to be between 1.5-2.0 for his kind of valve. See H&P for full documentation of the conversation between admitting hospitalist and his cardiothoracic surgeon - It was approved to hold his warfarin for total 7 days as per previous discussion between admitting hospitalist and his cardiothoracic surgeon - Warfarin on hold day # 12/25 (3) Aortic aneurysm Current Visit: No Status: Acute Code(s): I71.9 - AORTIC ANEURYSM OF UNSPECIFIED SITE, WITHOUT RUPTURE SNOMED Code(s): 94639091 Comment: Echo done 02/27/19 reveals prosthetic valve and aortic arch mildly dilated (4) Bicuspid aortic valve Current Visit: No Status: Acute Code(s): Q23.1 - CONGENITAL INSUFFICIENCY OF AORTIC VALVE SNOMED Code(s): 47138054 Comment: - Warfarin on hold day # 3 - Control his BP. Improved with losartan to 50 mg today. and with increase of lopressor to continue his lopressor 75 mg bid (5) DVT prophylaxis Current Visit: No Status: Acute Code(s): JBR8982 - SNOMED Code(s): 817732947 Comment: - SCDs and Ambulation
[2019-02-28] MEDS: levETIRAcetam TAB* 500 MG PO SCH (21:58)
[2019-03-01] MEDS: Losartan TAB* 25 MG PO SCH (08:53)
[2019-03-01] MEDS: Metoprolol Tartrate TAB* 25 MG PO SCH ×2 (08:53→22:40)
[2019-03-01] MEDS: levETIRAcetam TAB* 500 MG PO SCH ×2 (12:00→22:41)
--- NOTE | 2019-03-01 15:13 | PN ---
Subjective Date of Service: 03/01/19 Interval History: Pt feels well, denies headache or neuro deficits Past Medical History: Unchanged from Admission Objective Active Medications: Acetaminophen (Tylenol Tab*) 650 mg PO Q4H PRN PRN Reason: FEVER/PAIN Last Admin: 02/28/19 08:42 Dose: 650 mg Hydralazine HCl (Apresoline Iv*) 5 mg IV SLOW PU Q4H PRN PRN Reason: BLOOD PRESSURE Last Admin: 02/28/19 00:19 Dose: 5 mg Levetiracetam (Keppra Tab*) 1,000 mg PO Q12H [facility] Last Admin: 03/01/19 12:00 Dose: 1,000 mg Losartan Potassium (Cozaar Tab*) 50 mg PO DAILY [facility] Last Admin: 03/01/19 08:53 Dose: 50 mg Metoprolol Tartrate (Lopressor Tab*) 75 mg PO BID [facility] Last Admin: 03/01/19 08:53 Dose: 75 mg Oxycodone HCl (Roxycodone Tab*) 5 mg PO Q6H PRN PRN Reason: PAIN Last Admin: 02/27/19 09:45 Dose: 5 mg Warfarin Sodium (Coumadin Tab(*)) 2 mg PO DAILY@1700 [facility]; Protocol Vital Signs - 8 hr 03/01/19 07:25 Temperature 98.1 F Pulse Rate 73 Respiratory 18 Rate Blood Pressure 147/72 (mmHg) O2 Sat by Pulse 96 Oximetry Oxygen Devices in Use Now: None Appearance: 68 yo M in NAD, AAOx3 Eyes: No Scleral Icterus, PERRLA Ears/Nose/Mouth/Throat: NL Teeth, Lips, Gums, Mucous Membranes Moist Neck: NL Appearance and Movements; NL JVP, Trachea Midline Respiratory: Symmetrical Chest Expansion and Respiratory Effort, Clear to Auscultation Cardiovascular: NL Sounds; No Murmurs; No JVD, RRR Abdominal: NL Sounds; No Tenderness; No Distention Lymphatic: No Cervical Adenopathy Extremities: No Edema, No Clubbing, Cyanosis Skin: No Rash or Ulcers, No Nodules or Sclerosis Neurological: Alert and Oriented x 3, NL Muscle Strength and Tone Result Diagrams: 02/28/19 06:25 02/28/19 06:25 Microbiology and Other Data: Microbiology 02/26/19 16:04 Urine Culture - Final Urine No Growth (<1,000 CFU/mL) 02/26/19 14:44 Nasal Screen MRSA (PCR) - Final Nasal Mrsa Not Detected Assess/Plan/Problems-Billing Assessment: 68 y/o male admitted for weakness and subdural hematoma (on warfarin for his mechanical valve). Neurosurgery on the case. - Patient Problems (1) Aortic valve replaced Comment: - s/p AVR replacement on 10/30/18. Produced by [employer] and the goal of INR once warfarin resumed ok to be between 1.5-2.0 for his kind of valve. - It was approved to hold his warfarin for total 7 days as per previous discussion, but as per d/w neurosurgery we can start coumadin tomorrow . Pt had been on a dose of 4 mg x5 days /week and 2 mg x2 days/week . Will restart Coumadin 2 mg daily on 03/02/19 -cont Kepprs x 7 days for seizure prophylaxis (2) Subdural hematoma Comment: - Neurosurgery on the case - neurologically intact (3) HTN (hypertension) Comment: controlled now once meds adjusted (4) DVT prophylaxis Comment: - SCDs and Ambulation Status and Disposition: inpatient
--- NOTE | 2019-03-01 19:31 | PN ---
Progress Note - Progress Note Date of Service: 03/01/19 SOAP: Subjective: [] Patient seen on the regular floor this am. No events ON. Ambulates. Tolerates PO well. No MOSQUERA. Objective: []VSS, Afebrile AAOx3 RUY, CN II-XII grossly intact Motor 5/5 all extremities Sensory grossly intact to light touch Assessment: []68 yom lorraine SDH, on Coumadin sp Aortic valve replacement with mechanical valve. Plan: []Monitor VS, Neurochecks SZ prophylaxis for 7 days. Keep Mg level above 2 Will plan on restarting coumadin on day 6 and keep INR at minimum recommended by Dr Jensen. Appreciate IM care. Ortiz Bhatti MD
[2019-03-02 07:40] LABS: INR 1.18 (0.82-1.09)
[2019-03-02] MEDS: levETIRAcetam TAB* 500 MG PO SCH ×2 (10:01→21:37)
[2019-03-02] MEDS: Metoprolol Tartrate TAB* 25 MG PO SCH ×2 (10:01→21:35)
[2019-03-02] MEDS: Losartan TAB* 25 MG PO SCH (10:01)
--- NOTE | 2019-03-02 11:16 | PN ---
Subjective Date of Service: 03/02/19 Interval History: Pt feels well. Denies headache, neurologically intact Past Medical History: Unchanged from Admission Objective Active Medications: Acetaminophen (Tylenol Tab*) 650 mg PO Q4H PRN PRN Reason: FEVER/PAIN Last Admin: 02/28/19 08:42 Dose: 650 mg Hydralazine HCl (Apresoline Iv*) 5 mg IV SLOW PU Q4H PRN PRN Reason: BLOOD PRESSURE Last Admin: 02/28/19 00:19 Dose: 5 mg Levetiracetam (Keppra Tab*) 1,000 mg PO Q12H [facility] Last Admin: 03/02/19 10:01 Dose: 1,000 mg Losartan Potassium (Cozaar Tab*) 50 mg PO DAILY [facility] Last Admin: 03/02/19 10:01 Dose: 50 mg Metoprolol Tartrate (Lopressor Tab*) 75 mg PO BID [facility] Last Admin: 03/02/19 10:01 Dose: 75 mg Oxycodone HCl (Roxycodone Tab*) 5 mg PO Q6H PRN PRN Reason: PAIN Last Admin: 02/27/19 09:45 Dose: 5 mg Warfarin Sodium (Coumadin Tab(*)) 2 mg PO DAILY@1700 [facility]; Protocol Vital Signs - 8 hr 03/02/19 03/02/19 04:19 07:32 Temperature 97.7 F 97.9 F Pulse Rate 62 64 Respiratory 18 16 Rate Blood Pressure 131/62 149/70 (mmHg) O2 Sat by Pulse 97 94 Oximetry Oxygen Devices in Use Now: None Appearance: 68 yo M in nAD, aAOx3 Eyes: No Scleral Icterus, PERRLA Ears/Nose/Mouth/Throat: NL Teeth, Lips, Gums, Mucous Membranes Moist Neck: NL Appearance and Movements; NL JVP, Trachea Midline Respiratory: Symmetrical Chest Expansion and Respiratory Effort, Clear to Auscultation Cardiovascular: NL Sounds; No Murmurs; No JVD, RRR Abdominal: NL Sounds; No Tenderness; No Distention Lymphatic: No Cervical Adenopathy Extremities: No Edema, No Clubbing, Cyanosis Skin: No Rash or Ulcers, No Nodules or Sclerosis Neurological: Alert and Oriented x 3, NL Muscle Strength and Tone Result Diagrams: 02/28/19 06:25 02/28/19 06:25 Microbiology and Other Data: Microbiology 02/26/19 16:04 Urine Culture - Final Urine No Growth (<1,000 CFU/mL) 02/26/19 14:44 Nasal Screen MRSA (PCR) - Final Nasal Mrsa Not Detected Assess/Plan/Problems-Billing Assessment: 68 y/o male admitted for weakness and subdural hematoma (on warfarin for his mechanical valve). Neurosurgery on the case. - Patient Problems (1) Aortic valve replaced Comment: - s/p AVR replacement on 10/30/18. Produced by [employer] and the goal of INR once warfarin resumed ok to be between 1.5-2.0 for his kind of valve. - It was approved to hold his warfarin for total 7 days as per previous discussion, but as per d/w neurosurgery we can start coumadin today . Pt had been on a dose of 4 mg x5 days /week and 2 mg x2 days/week . Will restart Coumadin 2 mg daily on 03/02/19 -cont Keppra x 7 days for seizure prophylaxis (2) Subdural hematoma Comment: - Neurosurgery on the case - neurologically intact (3) HTN (hypertension) Comment: controlled now once meds adjusted (4) DVT prophylaxis Comment: - SCDs and Ambulation Status and Disposition: inpatient d/w pt that his discharge will depend on if his family is comfortable and able to watch his neuro status when Coumadin is reintroduced and pt has therapeutic INR. For now pt is staying, but will d/w family later
[2019-03-02] MEDS ORDERED: Warfarin TAB(*) 2 MG PO SCH (17:00)
--- NOTE | 2019-03-02 20:00 | PN ---
Progress Note - Progress Note Date of Service: 03/02/19 SOAP: Subjective: []Patient seen on the regular floor this pm. No events ON. Ambulates. Tolerates PO well. No MOSQUERA. Objective: []VSS, Afebrile AAOx3 RUY, CN II-XII grossly intact Motor 5/5 all extremities Sensory grossly intact to light touch Assessment: []68 yom lorraine SDH, on Coumadin sp Aortic valve replacement with mechanical valve. Plan: [] Monitor VS, Neurochecks SZ prophylaxis for 7 days. Keep Mg level above 2 Restarted coumadin on day 6 and keep INR at minimum recommended by Dr Jensen. DC home when INR goal achieved. Repeat CT prior to DC. Will be always available if needed. Follow up in office in one month with new CT brain. Appreciate IM care. Ortiz Bhatti MD
[2019-03-03 06:52] LABS: INR 1.15 (0.82-1.09)
[2019-03-03] MEDS: Losartan TAB* 25 MG PO SCH (08:58)
--- NOTE | 2019-03-03 08:58 | PN ---
Progress Note - Progress Note Date of Service: 03/03/19 SOAP: Subjective: 68 y/o male with bifrontal SDH, patient has been stable, currently denies MOSQUERA, nausea, vomiting, extremity weakness and issues with balance. Patient is vitals have been stable and reports no events over night. Objective: [] Vital Signs - 12 hr Temp Pulse Resp BP Pulse Ox 03/03/19 07:25 98.1 F 66 18 145/75 96 03/03/19 03:48 98.3 F 74 18 130/68 96 03/03/19 00:15 98.2 F 56 18 131/52 97 03/02/19 21:35 18 General: patient laying in Bed NAD Neuro: GCS 15, a&O x3, CN II - XII intact, Motor strength intact 5/5 in all extremities. sensation intact with light touch Assessment: 68 y/o male with chronic bifrontal SDH neurologically intact without focal deficits, patient has remains stable possible ready for discharge pending IM recommendations Plan: 1) Patient to follow up in clinic with new head CT 2) Follow IM recommendations.
[2019-03-03] MEDS: Metoprolol Tartrate TAB* 25 MG PO SCH ×2 (08:59→21:58)
[2019-03-03] MEDS: levETIRAcetam TAB* 500 MG PO SCH ×2 (12:49→21:57)
--- NOTE | 2019-03-03 17:23 | PN ---
Subjective Date of Service: 03/03/19 Interval History: Warfarin started last night. INR 1.15 today. Discussed with NSGY and prefers that INR reach therapeutic goal of 1.[address] Also would like to see no recurrence in symptoms at that INR. Discussed with patient and and amenable to staying in hospital for now. Pt denies headache, nausea, vomiting. Past Medical History: Unchanged from Admission Objective Active Medications: Acetaminophen (Tylenol Tab*) 650 mg PO Q4H PRN PRN Reason: FEVER/PAIN Last Admin: 02/28/19 08:42 Dose: 650 mg Levetiracetam (Keppra Tab*) 1,000 mg PO Q12H [facility] Last Admin: 03/03/19 12:49 Dose: 1,000 mg Losartan Potassium (Cozaar Tab*) 50 mg PO DAILY [facility] Last Admin: 03/03/19 08:58 Dose: 50 mg Metoprolol Tartrate (Lopressor Tab*) 75 mg PO BID [facility] Last Admin: 03/03/19 08:59 Dose: 75 mg Warfarin Sodium (Coumadin Tab(*)) 3 mg PO DAILY@1700 [facility]; Protocol Vital Signs - 8 hr 03/03/19 03/03/19 11:13 15:13 Temperature 98.6 F 97.7 F Pulse Rate 80 79 Respiratory 16 26 Rate Blood Pressure 154/65 128/69 (mmHg) O2 Sat by Pulse 96 99 Oximetry Oxygen Devices in Use Now: None Appearance: well appearing, NAD Eyes: PERRLA Ears/Nose/Mouth/Throat: Clear Oropharnyx, Mucous Membranes Moist Neck: NL Appearance and Movements; NL JVP Respiratory: Clear to Percussion Cardiovascular: NL Sounds; No Murmurs; No JVD, RRR Abdominal: NL Sounds; No Tenderness; No Distention, No Hepatosplenomegaly Extremities: No Edema, No Clubbing, Cyanosis Skin: No Rash or Ulcers Neurological: Alert and Oriented x 3, NL Gait, - - CN II - XII intact Result Diagrams: 02/28/19 06:25 02/28/19 06:25 Microbiology and Other Data: Microbiology 02/26/19 16:04 Urine Culture - Final Urine No Growth (<1,000 CFU/mL) 02/26/19 14:44 Nasal Screen MRSA (PCR) - Final Nasal Mrsa Not Detected Assess/Plan/Problems-Billing Assessment: 68M with h/o AVR with mechanical valve, HTN, presents with headache and weakness , found with subdural hematoma. Symptoms resolved and now restarting warfarin with lower INR goal. - Patient Problems (1) Subdural hematoma Comment: No neuro deficits. Appreciate NSGY consult. (2) Aortic valve replaced Comment: s/p AVR replacement on 10/30/18. Produced by [employer] and the goal of INR once warfarin resumed ok to be between 1.5-2.0 for his kind of valve. It was approved to hold his warfarin for total 7 days as per previous discussion. Pt had been on a dose of 4 mg x5 days /week and 2 mg x2 days/week . Will restart Coumadin 2 mg daily on 03/02/19 -cont Keppra x 7 days for seizure prophylaxis (02/26 - 03/04) (3) HTN (hypertension) Comment: controlled now once meds adjusted - on home metoprolol 75mg bid and now losartan 50mg (4) DVT prophylaxis Comment: - SCDs and Ambulation, restarting warfarin Status and Disposition: Inpatient. Plan for DC when INR 1.[address] stable.
[2019-03-03] MEDS: Warfarin TAB(*) 3 MG PO SCH (17:32)
[2019-03-04 07:53] LABS: INR 1.15 (0.82-1.09)
[2019-03-04] MEDS: Metoprolol Tartrate TAB* 25 MG PO SCH ×2 (08:29→20:54)
[2019-03-04] MEDS: Losartan TAB* 25 MG PO SCH (08:29)
--- NOTE | 2019-03-04 08:48 | PN ---
Subjective Date of Service: 03/04/19 Interval History: Unfortunately, INR is unchanged. Pt visibly frustrated but amenable to staying another night, especially given the encouragement of his . States he was out of work for 3 months after valve replacement, and that he was happy to finally be able to work again before he had this brain bleed. Still denying headache, lethargy. Past Medical History: Unchanged from Admission Objective Active Medications: Acetaminophen (Tylenol Tab*) 650 mg PO Q4H PRN PRN Reason: FEVER/PAIN Last Admin: 02/28/19 08:42 Dose: 650 mg Levetiracetam (Keppra Tab*) 1,000 mg PO Q12H [facility] Last Admin: 03/03/19 21:57 Dose: 1,000 mg Losartan Potassium (Cozaar Tab*) 50 mg PO DAILY [facility] Last Admin: 03/04/19 08:29 Dose: 50 mg Metoprolol Tartrate (Lopressor Tab*) 75 mg PO BID [facility] Last Admin: 03/04/19 08:29 Dose: 75 mg Warfarin Sodium (Coumadin Tab(*)) 3 mg PO DAILY@1700 [facility]; Protocol Last Admin: 03/03/19 17:32 Dose: 3 mg Vital Signs - 8 hr 03/04/19 03/04/19 04:08 07:46 Temperature 97.9 F 98.1 F Pulse Rate 70 66 Respiratory 18 22 Rate Blood Pressure 132/64 145/68 (mmHg) O2 Sat by Pulse 96 95 Oximetry Oxygen Devices in Use Now: None Appearance: well appearing but frustrated Ears/Nose/Mouth/Throat: Clear Oropharnyx, Mucous Membranes Moist Neck: NL Appearance and Movements; NL JVP Respiratory: Clear to Auscultation Cardiovascular: RRR Abdominal: NL Sounds; No Tenderness; No Distention Lymphatic: No Cervical Adenopathy Extremities: No Edema Skin: No Rash or Ulcers Neurological: Alert and Oriented x 3, NL Gait, NL Muscle Strength and Tone Result Diagrams: 02/28/19 06:25 02/28/19 06:25 Microbiology and Other Data: Microbiology 02/26/19 16:04 Urine Culture - Final Urine No Growth (<1,000 CFU/mL) 02/26/19 14:44 Nasal Screen MRSA (PCR) - Final Nasal Mrsa Not Detected Assess/Plan/Problems-Billing Assessment: 68M with h/o AVR with mechanical valve, HTN, presents with headache and weakness , found with subdural hematoma. Symptoms resolved and now restarting warfarin with lower INR goal. - Patient Problems (1) Subdural hematoma Comment: No neuro deficits. Appreciate NSGY consult. - cont Keppra for 7 days (02/26 - 03/04) - low INR goal of 1.5-2 (keep on lower end) (2) Aortic valve replaced Comment: s/p AVR replacement on 10/30/18. Produced by [employer] and the goal of INR once warfarin resumed ok to be between 1.5-2.0 for his kind of valve. It was approved to hold his warfarin for total 7 days as per previous discussion. Pt had been on a dose of 4 mg x5 days /week and 2 mg x2 days/week . Restarted Coumadin 2 mg daily on 03/02/19 (3) HTN (hypertension) Comment: controlled now once meds adjusted - on home metoprolol 75mg bid and now losartan 50mg (4) DVT prophylaxis Comment: - SCDs and Ambulation, restarting warfarin Status and Disposition: Inpatient. Plan for DC when INR 1.[address] stable.
[2019-03-04] MEDS: levETIRAcetam TAB* 500 MG PO SCH ×2 (11:11→22:16)
[2019-03-04] MEDS: Warfarin TAB(*) 3 MG PO SCH (17:23)
[2019-03-05 06:37] LABS: Hematocrit 35 % (42-52); Hemoglobin 11.6 g/dL (14.0-18.0); Mean Corpuscular HGB Conc 33 g/dL (31-36); Mean Corpuscular Hemoglobin 28 pg (27-31); Mean Corpuscular Volume 84 fL (80-94); Mean Platelet Volume 9.5 fL (7.4-10.4); Platelet Count 206 10^3/uL (150-450); Red Blood Count 4.16 10^6 /uL (4.18-5.48); Red Cell Distribution Width 17 % (10.5-15); White Blood Count 6.9 10^3/uL (3.5-10.8)
[2019-03-05 06:43] LABS: INR 1.15 (0.82-1.09)
[2019-03-05 06:52] LABS: BUN/Creatinine Ratio 23.1 (8-20); Calcium 9.2 mg/dL (8.6-10.3); EGFR African American 100.6 (>60); EGFR Non-African American 83.1 (>60)
[2019-03-05] MEDS: Losartan TAB* 25 MG PO SCH (08:26)
[2019-03-05] MEDS: Metoprolol Tartrate TAB* 25 MG PO SCH (08:26)
[2019-03-05] MEDS: levETIRAcetam TAB* 500 MG PO SCH (11:43)
[2019-03-05 13:18] VITALS: BP 140/62
--- NOTE | 2019-03-06 00:08 | DS ---
CC: Rony Bhatti MD; Dr. Uribe; Dr. Verónica Barros * DISCHARGE SUMMARY: DATE OF ADMISSION: 02/26/19 DATE OF DISCHARGE: 03/05/19 PRIMARY CARE PROVIDER: Dr. Verónica Barros. PRIMARY DIAGNOSIS: Subdural hematoma. SECONDARY DIAGNOSES: 1. Aortic valve bicuspid, status post replacement with mechanical valve. 2. Hypertension. CONSULTS: Rony Bhatti MD of Neurosurgery; Dr. Uribe of Cardiology. DISCHARGE MEDICATIONS: 1. Warfarin 3 mg daily to be titrated by Coumadin Clinic. 2. Metoprolol tartrate 75 mg twice a day. 3. Losartan 50 mg daily. 4. Atorvastatin 40 mg nightly. HISTORY OF PRESENT ILLNESS: A 68-year-old male with a history of recent mechanical aortic valve replacement by Dr. Jensen in [place] in October of this year given bicuspid aortic valve with further aortic arch repair, who has been on warfarin postoperatively with difficult to control INRs, is presenting with headaches for the last several days. Four days prior to admission, he presented to urgent care for evaluation and was diagnosed with sinusitis and treated with Augmentin, which slightly improved the headache, but then the headache recurred. On day of presentation, he presented with persistent headache with INR of 3.14. CT scan was performed, which noted bilateral subdural hematomas. The patient does recall an incident at work where he hit his ahead, although the details of this are unclear. HOSPITAL COURSE: The patient was given Toradol in the emergency room with CT scan notable for subdurals as mentioned. He was given Keppra [address] Bhatti from Neurosurgery was consulted, who recommended admission to the hospitalist service with reversal of the patient's INR with vitamin K and FFP. He was given seizure prophylaxis with Keppra for 7 days and his blood pressures are well controlled on losartan and metoprolol. The patient's mechanical valve was produced by the company [employer] and although his INR goal was initially 2 to 3 for 3 months after replacement, it was noted that he could have his INR goal decreased to 1.5 to 2 after 3 months' time. He was kept off anticoagulation with normal INR for approximately 4 days before warfarin was again started. After 3 days of warfarin reinitiation, the patient's INR was repeatedly 1.15 given resolution in the patient's symptoms. He was adamant about leaving the hospital and he arranged for himself a close Coumadin Clinic followup, noting that he is aware that his INR goal is now 1.52, although preferably in the lower end of that range and he prefers to continue following his INR in clinic rather than being hospitalized for this. The patient was extensively educated on our concerns that once his INR is therapeutic, he will no longer be in a monitored hospital setting to be aware of worsening of subdural urgently and desire to wait for head CT to be repeated after INR is therapeutic. However, knowing the risks of worsening subdural hematoma once INR is therapeutic, the patient still preferred to leave the hospital with close warfarin and Neurosurgery followup. Discussion was held with the patient and his regarding need to abstain from work at least until he is followed up in neurosurgery clinic. He was also advised to abstain from being alone in case of recurrence of headaches or lethargy and he and his stated that this would be possible after discharge. Although the patient is aware that we prefer that he stay in the hospital for continued monitoring of his INR, he elected to return home and all accommodations were made to ensure safest discharge possible. On day of discharge, the patient denies headache, nausea, vomiting, lethargy, confusion, focal weakness, or numbness. A complete 10- point review of systems was performed and all were negative. PHYSICAL EXAMINATION ON DISCHARGE: The patient is afebrile, heart rate 60s, blood pressure 140/62, respiratory rate 12, oxygen saturation 95% on room air. In general, well-appearing man, alert, interactive, A and O x2. Neck: Supple. Full range of motion without pain. HEENT: OP clear. Moist mucous membranes. Heart: Regular rate and rhythm. No murmurs, gallops, or rubs. Lungs: Clear to auscultation bilaterally. Abdomen: Soft, nontender, nondistended. Lower Extremities: Warm and well perfused. No evidence of edema. Neuro Exam: CN II through XII intact. Motor 5/5 in upper and lower extremities. Gait normal. Sensation intact bilaterally. PERTINENT DIAGNOSTIC STUDIES/LAB DATA: INR on day of discharge is 1.15, hemoglobin 11.6 at baseline, creatinine 0.94. Brain CT on day of discharge with mild interval decrease in volume of heterogenous density, bilateral subdural hematomas with the right side extraaxial collection measuring up to 0.8 cm transverse at the level of the centrum semiovale and the left-sided collection measuring up to 0.5 cm, interval decrease in density of 0.7 cm transverse subdural hematoma extending along the interhemispheric falx posteriorly, unchanged mild compression on the lateral and third ventricles, negative for midline shift, and basal cisterns without evidence for downward herniation. No new extra or intraaxial hemorrhage evident. Head CTA on 02/28/19 with bilateral frontal subdural hematomas with extension along the falx unchanged from the prior study without evidence for aneurysm. Transthoracic echocardiogram, LV with normal cavity size with wall thickness moderately increased, systolic function normal with EF 55% to 60%. LA and RA mildly dilated. Aortic valve with mechanical prosthetic valve and functioning normally with mild regurgitation. The aortic arch is not well visualized, but it is mildly dilated. DISCHARGE PLAN: The patient is to follow up closely in his Coumadin Clinic. I was advised to get his INR checked again tomorrow morning to ensure that he is at goal and not increased significantly from his goal. He will also follow up with neurosurgery clinic in 1 month and he will continue to follow along with his primary care physician. He was extensively educated on return precautions which included, but are not limited to new head trauma, lethargy, headache, nausea, vomiting, altered mental status, or focal weakness. He was advised to abstain from returning to work until his neurosurgical appointments and he was also advised to always have a family member or friend who can stay with him in case of sudden altered mental status. He is to resume a healthy diet and maintain a normal level of activity as tolerated with avoidance of activities that could cause trauma to his head. DISPOSITION: To home. CONDITION: Good. TIME SPENT: Approximately 60 minutes were spent on discharge of this patient, more than half of which was spent with care coordination at bedside for interview and exam. [id number]/[facility] #: [id number] LAISHA
== END 2019-03-05 15:00 | disposition home or self-care (01) | DRG 66 ==
LOC: ED 09:18 → ICU 13:02 → MED 02-28 16:04
PROVIDERS: ADMIT Internal Medicine; ATTEND Internal Medicine
PROC: 30233K1 Transfusion of Nonautologous Frozen Plasma into Peripheral Vein, Percutaneous Approach (ICD-10-PCS; principal; 2019-02-26)
DX: I62.01 Nontraumatic acute subdural hemorrhage (principal); H53.149 Visual discomfort, unspecified; I62.03 Nontraumatic chronic subdural hemorrhage; I10 Essential (primary) hypertension; R40.2412 Glasgow coma scale score 13-15, at arrival to emergency department; N40.0 Benign prostatic hyperplasia without lower urinary tract symptoms; I71.9 Aortic aneurysm of unspecified site, without rupture; I77.819 Aortic ectasia, unspecified site; Z90.89 Acquired absence of other organs; Z82.49 Family history of ischemic heart disease and other diseases of the circulatory system; Z87.891 Personal history of nicotine dependence; Z95.2 Presence of prosthetic heart valve; Z79.01 Long term (current) use of anticoagulants; Z72.89 Other problems related to lifestyle
CPT/HCPCS: 36415; 70450; 70496; 80048; 80053; 81003; 81015; 83605; 83735; 84100; 85025; 85027; 85610; 86850; 86900; 86901; 86927; 87086; 87641; 93005; 93306; 99285; A9270-GY; J0360; J1885; J1953; J2270; J2765; J3430; P9017; Q9967